=== PATIENT | male | born 1970 | race Hispanic/Latino ===

== ENCOUNTER 2018-11-05 17:49 | Emergency (ER) | payer OTHER ==
[2018-11-05 18:30] LABS: BASOPHILS % (AUTO) 0.6 % (0.0-5.0); EOSINOPHILS % (AUTO) 4.2 % (0.0-8.0); HEMATOCRIT 45.4 % (42-54); LYMPHOCYTES % (AUTO) 34.7 % (21.0-51.0); MEAN CORPUSCULAR HEMOGLOBIN 31.5 pg (27.0-33.0); MEAN CORPUSCULAR HGB CONC 33.8 g/dL (32.0-36.0); MEAN CORPUSCULAR VOLUME 93.2 fL (79-99); MONOCYTES % (AUTO) 9.3 % (3.0-13.0); NEUTROPHILS % (AUTO) 51.2 % (40.0-77.0); PLATELET COUNT (AUTO) 209 K/uL (130-400); RED BLOOD CELL COUNT(AUTO) 4.87 MIL/uL (4.50-6.20); RED CELL DISTRIBUTION WIDTH 13.9 % (11.0-15.5); WHITE BLOOD COUNT (AUTO) 9.9 K/uL (4.8-10.8)
[2018-11-05] MEDS ORDERED: LABETALOL HCL 5 MG/ML 20ML VIAL IV ONE (18:33)
[2018-11-05] MEDS ORDERED: ONDANSETRON HCL 4 MG/2 ML VIAL ONE (18:33)
[2018-11-05 18:44] LABS: CREATININE 0.9 mg/dL (0.5-1.5); POTASSIUM 3.7 mmol/L (3.5-5.1)
[2018-11-05 18:48] LABS: ALBUMIN 3.2 g/dL (3.5-5.0); BILIRUBIN,TOTAL 0.3 mg/dL (0.2-1.0); TOTAL PROTEIN, SERUM 7.8 g/dL (6.0-8.3)
[2018-11-05] MEDS ORDERED: FAMOTIDINE/PF 20 MG/2 ML VIAL IV ONE (19:16)
[2018-11-05] MEDS ORDERED: DICYCLOMINE HCL 20 MG TAB ONE (19:16)
== END 2018-11-05 20:16 | disposition home or self-care (01) ==
LOC: EDH 17:49
DX: K29.00 Acute gastritis without bleeding (principal); I10 Essential (primary) hypertension; E78.5 Hyperlipidemia, unspecified; E11.9 Type 2 diabetes mellitus without complications
CPT/HCPCS: 36415; 76705; 80053; 82948; 83690; 85025; 93005; 96365; 96375; 99284; J2405; J3490 ×2

== ENCOUNTER 2022-02-23 12:30 | Inpatient (IN) | payer OTHER ==
[~2022-02-23] VITALS: Ht 170.2 cm; Wt 127.5 kg
[~2022-02-23 12:30] MED LIST: ASPI-1443 PO; FURO20TA6 PO; METO50TA9 PO; TICA90TA PO
[2022-02-23] MEDS ORDERED: NITROGLYCERIN 0.4 MG SL TAB SL ONE (12:43)
[2022-02-23 13:01] LABS: BASOPHILS % (AUTO) 0.2 % (0.0-5.0); EOSINOPHILS % (AUTO) 7.2 % (0.0-8.0); HEMATOCRIT 45.4 % (42-54); LYMPHOCYTES % (AUTO) 34.9 % (21.0-51.0); MEAN CORPUSCULAR HEMOGLOBIN 29.9 pg (27.0-33.0); MEAN CORPUSCULAR VOLUME 90.4 fL (79-99); MONOCYTES % (AUTO) 10.3 % (3.0-13.0); NEUTROPHILS % (AUTO) 47.2 % (40.0-77.0); PLATELET COUNT (AUTO) 209 K/uL (130-400); RED BLOOD CELL COUNT(AUTO) 5.02 MIL/uL (4.50-6.20); RED CELL DISTRIBUTION WIDTH 13.4 % (11.0-15.5); WHITE BLOOD COUNT (AUTO) 9.2 K/uL (4.8-10.8)
[2022-02-23 13:16] LABS: B-TYPE NATRIURETIC PEPTIDE 119 pg/mL (0-100)
[2022-02-23 13:21] LABS: CREATININE 0.7 mg/dL (0.5-1.5)
[2022-02-23 13:26] LABS: ALBUMIN 3.2 g/dL (3.5-5.0); BILIRUBIN,TOTAL 0.5 mg/dL (0.2-1.0); TOTAL PROTEIN, SERUM 7.6 g/dL (6.0-8.3)
[2022-02-23] MEDS ORDERED: LACTULOSE 20 GM/30 ML UDCUP PO PRN (15:00)
[2022-02-23] MEDS ORDERED: ASPIRIN 81MG CHEW TAB PO ONE (15:00)
[2022-02-23] MEDS ORDERED: ACETAMINOPHEN 325 MG TAB PO PRN ×2 (15:00)
[2022-02-23] MEDS ORDERED: ONDANSETRON 4MG INJ IV PRN (15:00)
[2022-02-23 15:24] LABS: BASOPHILS % (AUTO) 0.2 % (0.0-5.0); EOSINOPHILS % (AUTO) 5.8 % (0.0-8.0); HEMATOCRIT 46.5 % (42-54); LYMPHOCYTES % (AUTO) 34.3 % (21.0-51.0); MEAN CORPUSCULAR HEMOGLOBIN 29.8 pg (27.0-33.0); MEAN CORPUSCULAR HGB CONC 32.5 g/dL (32.0-36.0); MEAN CORPUSCULAR VOLUME 91.9 fL (79-99); MONOCYTES % (AUTO) 8.9 % (3.0-13.0); NEUTROPHILS % (AUTO) 50.5 % (40.0-77.0); PLATELET COUNT (AUTO) 213 K/uL (130-400); RED BLOOD CELL COUNT(AUTO) 5.06 MIL/uL (4.50-6.20); RED CELL DISTRIBUTION WIDTH 13.4 % (11.0-15.5); WHITE BLOOD COUNT (AUTO) 9.5 K/uL (4.8-10.8)
[2022-02-23 15:41] LABS: INR 1.02 (0.85-1.15); PROTHROMBIN TIME 11.1 SEC (9.6-11.6)
[2022-02-23 15:42] LABS: PARTIAL THROMBOPLASTIN TIME 25.6 SEC (26.3-35.5)
[2022-02-23 15:53] LABS: THYROID STIMULATING HORMONE 1.74 uIU/mL (0.36-3.74)
[2022-02-23] MEDS: NITROGLYCERIN 1GM OINT 1 INCH/1GM TD SCH ×2 (15:57→22:19)
[2022-02-23] MEDS: HEPARIN 25,000 UNITS/250ML D5W 250 ML IV SCH (16:29)
[2022-02-23] MEDS ORDERED: FUROSEMIDE 40MG VIAL IV ONE (17:00)
[2022-02-23] MEDS: FAMOTIDINE 20MG VIAL IV SCH (21:00)
[2022-02-23 21:23] LABS: INR 1.02 (0.85-1.15); PROTHROMBIN TIME 11.1 SEC (9.6-11.6)
[2022-02-23 21:24] LABS: PARTIAL THROMBOPLASTIN TIME 65.2 SEC (26.3-35.5)
[2022-02-23 21:35] VITALS: BP 125/67
[2022-02-23] MEDS: ATORVASTATIN 40 MG TABLET PO SCH (22:18)
[2022-02-23] MEDS: METOPROLOL TARTRATE 25 MG TAB PO SCH (22:19)
[2022-02-23] MEDS: TICAGRELOR 90 MG TABLET PO SCH (22:19)
[2022-02-24] VITALS (14 sets, daily range): BP systolic 99–167; BP diastolic 62–93
[2022-02-24] MEDS: HEPARIN 25,000 UNITS/250ML D5W 250 ML IV SCH (04:04)
[2022-02-24 04:42] LABS: BASOPHILS % (AUTO) 0.3 % (0.0-5.0); EOSINOPHILS % (AUTO) 5.7 % (0.0-8.0); HEMATOCRIT 43.1 % (42-54); LYMPHOCYTES % (AUTO) 38.1 % (21.0-51.0); MEAN CORPUSCULAR HEMOGLOBIN 28.9 pg (27.0-33.0); MEAN CORPUSCULAR HGB CONC 31.1 g/dL (32.0-36.0); MEAN CORPUSCULAR VOLUME 92.9 fL (79-99); MONOCYTES % (AUTO) 7.9 % (3.0-13.0); NEUTROPHILS % (AUTO) 47.6 % (40.0-77.0); PLATELET COUNT (AUTO) 216 K/uL (130-400); RED BLOOD CELL COUNT(AUTO) 4.64 MIL/uL (4.50-6.20); RED CELL DISTRIBUTION WIDTH 13.5 % (11.0-15.5); WHITE BLOOD COUNT (AUTO) 14.1 K/uL (4.8-10.8)
[2022-02-24 04:51] LABS: INR 1.04 (0.85-1.15); PROTHROMBIN TIME 11.3 SEC (9.6-11.6)
[2022-02-24 05:12] LABS: PARTIAL THROMBOPLASTIN TIME 109.8 SEC (26.3-35.5)
[2022-02-24 05:22] LABS: POTASSIUM 4.1 mmol/L (3.5-5.1)
[2022-02-24] MEDS: NITROGLYCERIN 1GM OINT 1 INCH/1GM TD SCH ×2 (06:15→15:00)
[2022-02-24] MEDS: METOPROLOL TARTRATE 25 MG TAB PO SCH ×2 (08:38→20:54)
[2022-02-24] MEDS: FAMOTIDINE 20MG VIAL IV SCH ×2 (08:38→20:54)
[2022-02-24] MEDS: TICAGRELOR 90 MG TABLET PO SCH ×2 (08:38→20:54)
[2022-02-24] MEDS: ASPIRIN 81MG CHEW TAB PO SCH (08:38)
[2022-02-24] MEDS ORDERED: BIVALIRUDIN 250 MG/VIAL IV ONE (12:38)
[2022-02-24] MEDS ORDERED: IOHEXOL-350 50ML VIAL IV ONE (12:39)
[2022-02-24] MEDS ORDERED: IOHEXOL 350 MG/ML 100ML INFUS..BTL IV ONE (12:39)
[2022-02-24] MEDS ORDERED: LIDOCAINE HCL 400MG/20ML VIAL ONE (12:39)
[2022-02-24] MEDS ORDERED: HEPARIN 10,000 UNIT/10ML (1,000 UNIT/ML) VIAL ONE (12:39)
[2022-02-24] MEDS ORDERED: SODIUM BICARB 50MEQ 50ML VIAL 50 ML ONE (12:56)
[2022-02-24] MEDS ORDERED: NITROGLYCERIN 50MG VIAL ONE (12:57)
[2022-02-24] MEDS ORDERED: FENTANYL CITRATE PF 50 MCG/1 ML 2ML VIAL ONE (12:57)
[2022-02-24] MEDS ORDERED: NICARDIPINE 25MG INJ IV ONE (12:57)
[2022-02-24] MEDS ORDERED: MIDAZOLAM HCL 1 MG/ML 2ML VIAL ONE (12:57)
[2022-02-24] MEDS ORDERED: 0.9% NACL 500ML IV.SOLN 500 ML IV SCH (14:30)
[2022-02-24] MEDS: ATORVASTATIN 40 MG TABLET PO SCH (20:54)
[2022-02-25 00:14] VITALS: BP 130/75
[2022-02-25 04:06] VITALS: BP 137/74
[2022-02-25 04:17] LABS: HEMATOCRIT 40.1 % (42-54); MEAN CORPUSCULAR HGB CONC 31.9 g/dL (32.0-36.0); MEAN CORPUSCULAR VOLUME 90.7 fL (79-99); RED BLOOD CELL COUNT(AUTO) 4.42 MIL/uL (4.50-6.20); RED CELL DISTRIBUTION WIDTH 13.5 % (11.0-15.5); WHITE BLOOD COUNT (AUTO) 10.4 K/uL (4.8-10.8)
[2022-02-25 04:32] LABS: MAGNESIUM 1.8 mg/dL (1.80-2.40); POTASSIUM 4.2 mmol/L (3.5-5.1)
[2022-02-25] MEDS: NITROGLYCERIN 1GM OINT 1 INCH/1GM TD SCH ×2 (06:02→06:03)
[2022-02-25 08:24] VITALS: BP 151/83
[2022-02-25] MEDS: METOPROLOL TARTRATE 25 MG TAB PO SCH (09:08)
[2022-02-25] MEDS: TICAGRELOR 90 MG TABLET PO SCH (09:08)
[2022-02-25] MEDS: ASPIRIN 81MG CHEW TAB PO SCH (09:08)
[2022-02-25] MEDS: FAMOTIDINE 20MG VIAL IV SCH (09:08)
[2022-02-25 10:46] LABS: AMPHET/METH SCREEN,URINE NEGATIVE (NEGATIVE); BARBITURATE SCREEN, URINE NEGATIVE (NEGATIVE); BENZODIAZEPINES SCREEN,URINE POSITIVE (NEGATIVE); CANNABINOID SCREEN,URINE NEGATIVE (NEGATIVE); COCAINE SCREEN,URINE NEGATIVE (NEGATIVE); OPIATE SCREEN,URINE NEGATIVE (NEGATIVE); PHENCYCLIDINE SCREEN,URINE NEGATIVE (NEGATIVE)
[2022-02-25] MEDS ORDERED: SACU1TAB PO (11:39)
[2022-02-25] MEDS ORDERED: ATOR40TA69 PO (11:39)
[2022-02-25 12:00] VITALS: BP 103/71
== END 2022-02-25 14:20 | disposition home or self-care (01) | DRG 246 ==
LOC: EDH 12:30 → EDHIP 14:42 → 2DH 21:50
PROVIDERS: ADMIT Internal Medicine; ATTEND Internal Medicine
PROC: 4A023N7 Measurement of Cardiac Sampling and Pressure, Left Heart, Percutaneous Approach (ICD-10-PCS; principal; 2022-02-24)
PROC: 027034Z Dilation of Coronary Artery, One Artery with Drug-eluting Intraluminal Device, Percutaneous Approach (ICD-10-PCS; 2022-02-24)
PROC: B2111ZZ Fluoroscopy of Multiple Coronary Arteries using Low Osmolar Contrast (ICD-10-PCS; 2022-02-24)
PROC: 4A033BC Measurement of Arterial Pressure, Coronary, Percutaneous Approach (ICD-10-PCS; 2022-02-24)
DX: I21.4 Non-ST elevation (NSTEMI) myocardial infarction (principal); I50.23 Acute on chronic systolic (congestive) heart failure; Z68.41 Body mass index [BMI] 40.0-44.9, adult; I11.0 Hypertensive heart disease with heart failure; Z82.49 Family history of ischemic heart disease and other diseases of the circulatory system; I25.2 Old myocardial infarction; E66.9 Obesity, unspecified; E11.9 Type 2 diabetes mellitus without complications; Z20.822 Contact with and (suspected) exposure to COVID-19; E78.00 Pure hypercholesterolemia, unspecified; I25.10 Atherosclerotic heart disease of native coronary artery without angina pectoris
CPT/HCPCS: 36415; 71045; 80048; 80053; 80061; 80305; 82550; 82948; 83735; 83874; 83880; 84443; 84484; 85025; 85027; 85347; 85378; 85610; 85730; 87635; 93005; 93454; 93571; 99156; 99157; 99291; C1887; C9600; C9803; G0378; J0583; J1644; J1940; J2250; J2405; J3010; J3490; Q9967

== ENCOUNTER → 2022-05-28 | Outpatient (CLI) | payer OTHER ==
[~2022-05-28] MED LIST changes: +AEC81 PO; +ATOR40TA69 PO; +BUDE10.7 IH; +FURO20TA4 PO; +ISOS30TA92 PO; +METF-444 PO; +METO25TA3 PO; +NITR0.3T11 SL; +PRED20TA3 PO; +SACU1TAB PO
== END | disposition home or self-care (01) ==
LOC: SHCH 09:51
PROVIDERS: ATTEND Internal Medicine Cardiovascular Disease
DX: I11.0 Hypertensive heart disease with heart failure (principal); I50.22 Chronic systolic (congestive) heart failure; I25.5 Ischemic cardiomyopathy; I25.10 Atherosclerotic heart disease of native coronary artery without angina pectoris; I36.1 Nonrheumatic tricuspid (valve) insufficiency; I25.2 Old myocardial infarction; G47.33 Obstructive sleep apnea (adult) (pediatric); E78.5 Hyperlipidemia, unspecified; E66.9 Obesity, unspecified
CPT/HCPCS: 93306

== ENCOUNTER 2022-06-11 07:00 | Inpatient (IN) | payer OTHER ==
[2022-06-11] VITALS (15 sets, daily range): BP systolic 102–145; BP diastolic 58–82
[~2022-06-11] VITALS: Ht 170.2 cm; Wt 128.6 kg
[~2022-06-11 07:00] MED LIST changes: -AEC81 PO; -BUDE10.7 IH; -FURO20TA4 PO; -ISOS30TA92 PO; -METF-444 PO; -METO25TA3 PO; -NITR0.3T11 SL; -PRED20TA3 PO
[2022-06-11] MEDS ORDERED: NITROGLYCERIN 1GM OINT 1 INCH/1GM TD ONE ×2 (07:23→07:30)
[2022-06-11] MEDS ORDERED: FENTANYL CITRATE PF 50 MCG/1 ML 2ML VIAL ONE (07:36)
[2022-06-11 07:46] LABS: APPEARANCE,URINE CLEAR (CLEAR); BILIRUBIN,URINE NEGATIVE (NEGATIVE); COLOR,URINE YELLOW (YELLOW); GLUCOSE, URINE (UA) >=1000 mg/dL (NEGATIVE); KETONES,URINE NEGATIVE (NEGATIVE); LEUKOCYTE ESTERASE ,URINE NEGATIVE (NEGATIVE); NITRATE,URINE NEGATIVE (NEGATIVE); OCCULT BLOOD,URINE NEGATIVE (NEGATIVE); PH,URINE 5.5 (5.0-8.0); PROTEIN,URINE NEGATIVE (NEGATIVE); UROBILINOGEN,URINE 0.2 mg/dL (0.2-1.0)
[2022-06-11] MEDS ORDERED: NITR0.3T11 SL (07:57)
[2022-06-11] MEDS ORDERED: BUDE10.7 IH (07:57)
[2022-06-11] MEDS ORDERED: FENTANYL CITRATE PF 50 MCG/1 ML 2ML VIAL IVP ONE (08:00)
[2022-06-11] MEDS ORDERED: PRED20TA3 PO (08:01)
[2022-06-11] MEDS ORDERED: FURO20TA4 PO (08:01)
[2022-06-11 08:02] LABS: ALBUMIN 3.4 g/dL (3.5-5.0); CREATININE 1.4 mg/dL (0.5-1.5); POTASSIUM 4.2 mmol/L (3.5-5.1); TOTAL PROTEIN, SERUM 7.8 g/dL (6.0-8.3)
[2022-06-11 08:04] LABS: BACTERIA,URINE Few /HPF (None Seen); RBC,URINE 0-1 /HPF (0-1); SQUAMOUS EPITHELIAL CELL,UR 0-2 /HPF (0-2); WBC,URINE 0-1 /HPF (0-1)
[2022-06-11 08:15] LABS: B-TYPE NATRIURETIC PEPTIDE 172 pg/mL (0-100)
[2022-06-11 08:18] LABS: BASOPHILS % (AUTO) 0.1 % (0.0-5.0); HEMATOCRIT 46.1 % (42-54); LYMPHOCYTES % (AUTO) 17.4 % (21.0-51.0); MEAN CORPUSCULAR HEMOGLOBIN 30.4 pg (27.0-33.0); MEAN CORPUSCULAR HGB CONC 33.8 g/dL (32.0-36.0); MEAN CORPUSCULAR VOLUME 89.7 fL (79-99); MONOCYTES % (AUTO) 7.8 % (3.0-13.0); PLATELET COUNT (AUTO) 278 K/uL (130-400); RED BLOOD CELL COUNT(AUTO) 5.14 MIL/uL (4.50-6.20); RED CELL DISTRIBUTION WIDTH 13.9 % (11.0-15.5)
[2022-06-11] MEDS ORDERED: NYSTATIN 100000 UNIT/ML 5ML UDCUP PO ONE (08:30)
[2022-06-11] MEDS ORDERED: HEPARIN 25,000 UNITS/250ML D5W 250 ML IV SCH (08:30)
[2022-06-11 08:45] LABS: INR 0.95 (0.85-1.15); PROTHROMBIN TIME 10.4 SEC (9.6-11.6)
[2022-06-11] MEDS ORDERED: DIPHENHYDRAMINE HCL 25 MG CAPSULE PO PRN (09:00)
[2022-06-11] MEDS ORDERED: KCL 20 MEQ ERTAB PO PRN (09:00)
[2022-06-11] MEDS ORDERED: LACTULOSE 20 GM/30 ML UDCUP PO PRN (09:00)
[2022-06-11] MEDS ORDERED: GUAIFENESIN-DM 200/20 MG 10 ML PO PRN (09:00)
[2022-06-11] MEDS ORDERED: ACETAMINOPHEN 325 MG TAB PO PRN ×2 (09:00)
[2022-06-11] MEDS ORDERED: NITROGLYCERIN 0.4 MG SL TAB SL PRN (09:00)
[2022-06-11] MEDS ORDERED: MAG/ALUM/SIMETH 30 ML UDCUP PO PRN (09:00)
[2022-06-11] MEDS ORDERED: POTASSIUM CHLORIDE 20MEQ/100ML 100 ML IV PRN (09:00)
[2022-06-11] MEDS ORDERED: MAGNESIUM 2GM PREMIX 50ML 50 ML IV PRN (09:00)
[2022-06-11] MEDS ORDERED: DEXTROSE 50%-WATER 50 ML DISP.SYRIN IV PRN ×2 (09:00→12:00)
[2022-06-11] MEDS ORDERED: ONDANSETRON 4MG INJ IV PRN (09:00)
[2022-06-11] MEDS ORDERED: LIDOCAINE HCL-MPF 1% 2ML VIAL IV PRN (09:00)
[2022-06-11] MEDS: FAMOTIDINE 20MG TAB PO SCH ×3 (09:00→22:02)
[2022-06-11] MEDS ORDERED: POTASSIUM CHLORIDE 10% ELIXIR 20 MEQ/15 ML UDCUP PO PRN (09:00)
[2022-06-11] MEDS ORDERED: DiphenhydrAMINE HCL 50 MG/ML VIAL IV PRN (09:00)
[2022-06-11] MEDS ORDERED: CLOPIDOGREL 300MG TAB PO SCH (09:00)
[2022-06-11] MEDS ORDERED: GLUCAGON 1MG KIT 1 MG ML IM PRN ×2 (09:00→12:00)
[2022-06-11] MEDS ORDERED: HEPARIN 5,000 UNIT VIAL ONE (09:01)
[2022-06-11] MEDS: FAMOTIDINE 20MG VIAL IV SCH ×2 (09:35→22:02)
[2022-06-11] MEDS ORDERED: HEPARIN 10,000 UNIT/10ML (1,000 UNIT/ML) VIAL ONE (10:24)
[2022-06-11] MEDS ORDERED: IOHEXOL 350 MG/ML 100ML INFUS..BTL IV ONE (10:24)
[2022-06-11] MEDS ORDERED: NICARDIPINE 25MG INJ IV ONE (10:24)
[2022-06-11] MEDS ORDERED: NITROGLYCERIN 50MG VIAL ONE (10:24)
[2022-06-11] MEDS ORDERED: MIDAZOLAM HCL 1 MG/ML 2ML VIAL ONE (10:25)
[2022-06-11] MEDS ORDERED: TICAGRELOR 90 MG TABLET ONE (11:27)
[2022-06-11] MEDS ORDERED: 0.9%NACL 1000ML 1,000 ML IV SCH (12:00)
[2022-06-11] MEDS: INSULIN HUMULIN R 100 UNIT/ML 3ML SQ SCH ×3 (13:11→22:04)
[2022-06-11] MEDS ORDERED: SACUBITRIL/VALSARTAN 1 EACH TABLET PO SCH (21:00)
[2022-06-11] MEDS: ATORVASTATIN 40 MG TABLET PO SCH (22:02)
[2022-06-11] MEDS: PREDNISONE 20 MG TABLET PO SCH (22:02)
[2022-06-11] MEDS: TICAGRELOR 90 MG TABLET PO SCH (22:02)
[2022-06-11] MEDS: FUROSEMIDE 20 MG TABLET PO SCH (22:05)
[2022-06-12 03:42] VITALS: BP 101/58
[2022-06-12 03:46] LABS: BASOPHILS % (AUTO) 0.1 % (0.0-5.0); EOSINOPHILS % (AUTO) 0.9 % (0.0-8.0); HEMATOCRIT 45.2 % (42-54); LYMPHOCYTES % (AUTO) 19.6 % (21.0-51.0); MEAN CORPUSCULAR HEMOGLOBIN 30.1 pg (27.0-33.0); MEAN CORPUSCULAR HGB CONC 32.5 g/dL (32.0-36.0); MEAN CORPUSCULAR VOLUME 92.6 fL (79-99); MONOCYTES % (AUTO) 9.2 % (3.0-13.0); NEUTROPHILS % (AUTO) 69.6 % (40.0-77.0); PLATELET COUNT (AUTO) 248 K/uL (130-400); RED BLOOD CELL COUNT(AUTO) 4.88 MIL/uL (4.50-6.20); RED CELL DISTRIBUTION WIDTH 14.1 % (11.0-15.5); WHITE BLOOD COUNT (AUTO) 19.2 K/uL (4.8-10.8)
[2022-06-12 03:56] LABS: CREATININE 1.3 mg/dL (0.5-1.5); POTASSIUM 4.6 mmol/L (3.5-5.1)
[2022-06-12] MEDS: INSULIN HUMULIN R 100 UNIT/ML 3ML SQ SCH ×3 (07:06→20:49)
[2022-06-12] MEDS: FUROSEMIDE 20 MG TABLET PO SCH ×2 (07:51→20:56)
[2022-06-12] MEDS: METOPROLOL SUCCINATE 25 MG TAB.SR.24H PO SCH (07:52)
[2022-06-12] MEDS: ASPIRIN 81 MG EC TAB PO SCH (07:52)
[2022-06-12] MEDS: FAMOTIDINE 20MG VIAL IV SCH ×2 (07:52→20:56)
[2022-06-12] MEDS: FAMOTIDINE 20MG TAB PO SCH ×2 (07:52→20:56)
[2022-06-12] MEDS: TICAGRELOR 90 MG TABLET PO SCH ×2 (07:52→20:55)
[2022-06-12] MEDS: PREDNISONE 20 MG TABLET PO SCH ×2 (07:52→20:55)
[2022-06-12 08:00] VITALS: BP 107/71
[2022-06-12] MEDS ORDERED: CLOPIDOGREL 75MG TAB PO SCH (09:00)
[2022-06-12] MEDS: SACUBITRIL/VALSARTAN 1 EACH TABLET PO SCH ×2 (09:27→20:56)
[2022-06-12 11:47] VITALS: BP 113/55
[2022-06-12 15:50] VITALS: BP 108/58
[2022-06-12 20:00] VITALS: BP 117/59
[2022-06-12] MEDS: ATORVASTATIN 40 MG TABLET PO SCH (20:55)
[2022-06-12] MEDS ORDERED: INSULIN GLARGINE 100 UNITS/ML 10 ML VIAL SQ SCH (21:00)
[2022-06-12 23:43] VITALS: BP 116/68
[2022-06-13 04:29] LABS: BASOPHILS % (AUTO) 0.1 % (0.0-5.0); EOSINOPHILS % (AUTO) 0.1 % (0.0-8.0); HEMATOCRIT 44.3 % (42-54); LYMPHOCYTES % (AUTO) 16.1 % (21.0-51.0); MEAN CORPUSCULAR HEMOGLOBIN 30.5 pg (27.0-33.0); MEAN CORPUSCULAR VOLUME 92.7 fL (79-99); MONOCYTES % (AUTO) 7.4 % (3.0-13.0); NEUTROPHILS % (AUTO) 75.7 % (40.0-77.0); PLATELET COUNT (AUTO) 252 K/uL (130-400); RED BLOOD CELL COUNT(AUTO) 4.78 MIL/uL (4.50-6.20); RED CELL DISTRIBUTION WIDTH 14.2 % (11.0-15.5); WHITE BLOOD COUNT (AUTO) 17.8 K/uL (4.8-10.8)
[2022-06-13 04:30] VITALS: BP 115/66
[2022-06-13 04:41] LABS: CREATININE 1.2 mg/dL (0.5-1.5); POTASSIUM 4.5 mmol/L (3.5-5.1)
[2022-06-13] MEDS: INSULIN HUMULIN R 100 UNIT/ML 3ML SQ SCH ×2 (06:35→11:30)
[2022-06-13] MEDS: METOPROLOL SUCCINATE 25 MG TAB.SR.24H PO SCH (09:00)
[2022-06-13] MEDS: FAMOTIDINE 20MG VIAL IV SCH (09:00)
[2022-06-13] MEDS: PREDNISONE 20 MG TABLET PO SCH (09:07)
[2022-06-13] MEDS: SACUBITRIL/VALSARTAN 1 EACH TABLET PO SCH (09:08)
[2022-06-13] MEDS: TICAGRELOR 90 MG TABLET PO SCH (09:08)
[2022-06-13] MEDS: ASPIRIN 81 MG EC TAB PO SCH (09:08)
[2022-06-13] MEDS: FAMOTIDINE 20MG TAB PO SCH (09:08)
[2022-06-13] MEDS: FUROSEMIDE 20 MG TABLET PO SCH (09:09)
[2022-06-13 09:19] VITALS: BP 100/53
[2022-06-13] MEDS ORDERED: ISOS30TA92 PO (10:15)
[2022-06-13] MEDS ORDERED: FURO20TA6 PO (10:44)
[2022-06-13] MEDS ORDERED: METO25TA3 PO (10:44)
[2022-06-13] MEDS ORDERED: AEC81 PO (10:44)
[2022-06-13] MEDS ORDERED: METF-444 PO (10:44)
[2022-06-13] MEDS ORDERED: ATOR40TA69 PO (10:44)
[2022-06-13 12:09] VITALS: BP 114/62
== END 2022-06-13 13:11 | disposition home or self-care (01) | DRG 280 ==
LOC: EDH 07:00 → EDHIP 08:37 → 2BH 11:49 → 2AH 14:47
PROVIDERS: ADMIT Internal Medicine; ATTEND Internal Medicine
PROC: 4A023N7 Measurement of Cardiac Sampling and Pressure, Left Heart, Percutaneous Approach (ICD-10-PCS; principal; 2022-06-11)
PROC: B2111ZZ Fluoroscopy of Multiple Coronary Arteries using Low Osmolar Contrast (ICD-10-PCS; 2022-06-11)
DX: I25.10 Atherosclerotic heart disease of native coronary artery without angina pectoris (principal); I21.A1 Myocardial infarction type 2; U07.1 COVID-19; Z68.41 Body mass index [BMI] 40.0-44.9, adult; D72.829 Elevated white blood cell count, unspecified; E11.65 Type 2 diabetes mellitus with hyperglycemia; E66.01 Morbid (severe) obesity due to excess calories; E78.00 Pure hypercholesterolemia, unspecified; G47.33 Obstructive sleep apnea (adult) (pediatric); I11.0 Hypertensive heart disease with heart failure; I25.5 Ischemic cardiomyopathy; I50.9 Heart failure, unspecified; I25.2 Old myocardial infarction; Z79.02 Long term (current) use of antithrombotics/antiplatelets; Z79.84 Long term (current) use of oral hypoglycemic drugs; Z87.891 Personal history of nicotine dependence; Z95.5 Presence of coronary angioplasty implant and graft
CPT/HCPCS: 36415; 71045; 80048; 80053; 81001; 82948; 83690; 83735; 83880; 84484; 85025; 85378; 85610; 85730; 87635; 93005; 93458; 99156; 99157; C1769; G0378; J1644; J1815; J2250; J3010; J3490; Q9967

== ENCOUNTER 2022-09-17 20:38 | Emergency (ER) | payer OTHER ==
[~2022-09-17] VITALS: Ht 180.3 cm; Wt 127.0 kg
[~2022-09-17 20:38] MED LIST changes: +AEC81 PO; +BUDE10.7 IH; +FURO20TA4 PO; +ISOS30TA92 PO; +METF-444 PO; +METO25TA3 PO; +NITR0.3T11 SL; +PRED20TA3 PO
[2022-09-17 21:16] LABS: BASOPHILS % (AUTO) 0.3 % (0.0-5.0); EOSINOPHILS % (AUTO) 3.7 % (0.0-8.0); LYMPHOCYTES % (AUTO) 42.7 % (21.0-51.0); MEAN CORPUSCULAR HEMOGLOBIN 29.9 pg (27.0-33.0); MEAN CORPUSCULAR HGB CONC 32.6 g/dL (32.0-36.0); MEAN CORPUSCULAR VOLUME 91.8 fL (79-99); MONOCYTES % (AUTO) 10.4 % (3.0-13.0); NEUTROPHILS % (AUTO) 42.6 % (40.0-77.0); PLATELET COUNT (AUTO) 237 K/uL (130-400); RED BLOOD CELL COUNT(AUTO) 4.25 MIL/uL (4.50-6.20); RED CELL DISTRIBUTION WIDTH 13.6 % (11.0-15.5); WHITE BLOOD COUNT (AUTO) 10.8 K/uL (4.8-10.8)
[2022-09-17 21:34] LABS: CREATININE 1.1 mg/dL (0.5-1.5); POTASSIUM 3.8 mmol/L (3.5-5.1)
[2022-09-17 21:48] LABS: ALBUMIN 3.2 g/dL (3.5-5.0); AMYLASE 104 U/L (25-115); CREATINE KINASE, TOTAL 93 U/L (21-232); LIPASE 141 U/L (114-286); TOTAL PROTEIN, SERUM 7.3 g/dL (6.0-8.3)
[2022-09-17] MEDS ORDERED: IBUP-1493 PO (23:33)
[2022-09-17] MEDS ORDERED: GABA300C PO (23:33)
[2022-09-17] MEDS ORDERED: LIDOP TD (23:33)
[2022-09-17] MEDS ORDERED: MORPHINE 2 MG SYG ONE (23:44)
[2022-09-17 23:54] VITALS: BP 139/76
[2022-09-18] MEDS ORDERED: MORPHINE 2 MG SYG IVP ONE
== END 2022-09-18 | disposition home or self-care (01) ==
LOC: EDH 20:38
DX: M48.061 Spinal stenosis, lumbar region without neurogenic claudication (principal); M54.12 Radiculopathy, cervical region; M94.0 Chondrocostal junction syndrome [Tietze]; I50.9 Heart failure, unspecified; I25.10 Atherosclerotic heart disease of native coronary artery without angina pectoris; E78.00 Pure hypercholesterolemia, unspecified; I25.2 Old myocardial infarction; Z79.52 Long term (current) use of systemic steroids; Z79.82 Long term (current) use of aspirin; Z79.84 Long term (current) use of oral hypoglycemic drugs; Z79.899 Other long term (current) drug therapy; Z95.5 Presence of coronary angioplasty implant and graft; Z95.810 Presence of automatic (implantable) cardiac defibrillator
CPT/HCPCS: 36415; 71045; 80053; 82150; 82550; 83690; 83880; 84484; 85025; 85378; 93005; 96374

== ENCOUNTER → 2022-09-29 | Outpatient (CLI) | payer OTHER ==
[~2022-09-29] MED LIST changes: +GABA300C PO; +IBUP-1493 PO; +LIDOP TD
[2022-09-29 16:33] LABS: ALBUMIN 3.3 g/dL (3.5-5.0); POTASSIUM 3.9 mmol/L (3.5-5.1); TOTAL PROTEIN, SERUM 7.6 g/dL (6.0-8.3)
== END | disposition home or self-care (01) ==
LOC: LAB 13:31
PROVIDERS: ATTEND Internal Medicine Cardiovascular Disease
DX: I50.22 Chronic systolic (congestive) heart failure (principal); R06.09 Other forms of dyspnea
CPT/HCPCS: 36415; 80053

== ENCOUNTER 2023-03-05 18:07 | Inpatient (IN) | payer OTHER ==
[~2023-03-05] VITALS: Ht 170.2 cm; Wt 128.4 kg
[2023-03-05 18:29] LABS: BASOPHILS % (AUTO) 0.3 % (0.0-5.0); EOSINOPHILS % (AUTO) 6.7 % (0.0-8.0); HEMATOCRIT 41.4 % (42-54); LYMPHOCYTES % (AUTO) 37.9 % (21.0-51.0); MEAN CORPUSCULAR HEMOGLOBIN 29.6 pg (27.0-33.0); MEAN CORPUSCULAR HGB CONC 32.9 g/dL (32.0-36.0); MEAN CORPUSCULAR VOLUME 90.2 fL (79-99); MONOCYTES % (AUTO) 9.1 % (3.0-13.0); NEUTROPHILS % (AUTO) 45.7 % (40.0-77.0); PLATELET COUNT (AUTO) 230 K/uL (130-400); RED BLOOD CELL COUNT(AUTO) 4.59 MIL/uL (4.50-6.20); RED CELL DISTRIBUTION WIDTH 14.1 % (11.0-15.5); WHITE BLOOD COUNT (AUTO) 11.6 K/uL (4.8-10.8)
[2023-03-05 18:39] LABS: POTASSIUM 3.8 mmol/L (3.5-5.1)
[2023-03-05] MEDS ORDERED: MORPHINE 2 MG SYG ONE (18:41)
[2023-03-05 18:48] LABS: ALBUMIN 3.2 g/dL (3.5-5.0); MAGNESIUM 2.3 mg/dL (1.80-2.40); TOTAL PROTEIN, SERUM 7.6 g/dL (6.0-8.3)
[2023-03-05] MEDS ORDERED: MORPHINE 2 MG SYG IM ONE (19:00)
[2023-03-05] MEDS ORDERED: ASPIRIN 325MG TAB PO ONE (20:30)
[2023-03-05] MEDS ORDERED: NITROGLYCERIN 1GM OINT 1 INCH/1GM TD ONE (20:30)
[2023-03-05] MEDS: NITROGLYCERIN 1GM OINT 1 INCH/1GM TD SCH (21:30)
[2023-03-05] MEDS ORDERED: POTASSIUM CHLORIDE 10% ELIXIR 20 MEQ/15 ML UDCUP PO PRN (21:30)
[2023-03-05] MEDS ORDERED: MORPHINE 2 MG SYG IV PRN (21:30)
[2023-03-05] MEDS ORDERED: POTASSIUM CHLORIDE 20MEQ/100ML 100 ML IV PRN (21:30)
[2023-03-05] MEDS ORDERED: MORPHINE 4 MG SYG IV PRN (21:30)
[2023-03-05] MEDS ORDERED: MAGNESIUM 2GM PREMIX 50ML 50 ML IV PRN (21:30)
[2023-03-05] MEDS ORDERED: ACETAMINOPHEN 325 MG TAB PO PRN ×2 (21:30)
[2023-03-05] MEDS ORDERED: HEPARIN PF LOCK 500 UNIT/5ML IV ONE (23:47)
[2023-03-06] MEDS ORDERED: CLOPIDOGREL 300MG TAB PO ONE
[2023-03-06 00:16] LABS: INR 1.08 (0.85-1.15); PROTHROMBIN TIME 11.7 SEC (9.6-11.6)
[2023-03-06 00:17] LABS: PARTIAL THROMBOPLASTIN TIME 29.7 SEC (26.3-35.5)
[2023-03-06] MEDS: HEPARIN 25,000 UNITS/250ML D5W 250 ML IV SCH (00:30)
[2023-03-06 01:16] LABS: APPEARANCE,URINE CLEAR (CLEAR); BILIRUBIN,URINE NEGATIVE (NEGATIVE); COLOR,URINE LIGHT-YELLOW (YELLOW); GLUCOSE, URINE (UA) NEGATIVE (NEGATIVE); KETONES,URINE NEGATIVE (NEGATIVE); LEUKOCYTE ESTERASE ,URINE NEGATIVE Leu/uL (NEGATIVE); NITRATE,URINE NEGATIVE (NEGATIVE); OCCULT BLOOD,URINE NEGATIVE (NEGATIVE); PH,URINE 5.5 (5.0-8.0); PROTEIN,URINE NEGATIVE (NEGATIVE); UROBILINOGEN,URINE 0.2 mg/dL (0.2-1.0)
[2023-03-06 01:23] LABS: AMPHET/METH SCREEN,URINE NEGATIVE (NEGATIVE); BARBITURATE SCREEN, URINE NEGATIVE (NEGATIVE); BENZODIAZEPINES SCREEN,URINE NEGATIVE (NEGATIVE); CANNABINOID SCREEN,URINE NEGATIVE (NEGATIVE); COCAINE SCREEN,URINE NEGATIVE (NEGATIVE); OPIATE SCREEN,URINE NEGATIVE (NEGATIVE); PHENCYCLIDINE SCREEN,URINE NEGATIVE (NEGATIVE)
[2023-03-06 04:45] LABS: BASOPHILS % (AUTO) 0.3 % (0.0-5.0); EOSINOPHILS % (AUTO) 6.3 % (0.0-8.0); HEMATOCRIT 41.5 % (42-54); LYMPHOCYTES % (AUTO) 41.6 % (21.0-51.0); MEAN CORPUSCULAR HEMOGLOBIN 29.8 pg (27.0-33.0); MEAN CORPUSCULAR HGB CONC 32.3 g/dL (32.0-36.0); MEAN CORPUSCULAR VOLUME 92.4 fL (79-99); NEUTROPHILS % (AUTO) 44.5 % (40.0-77.0); PLATELET COUNT (AUTO) 210 K/uL (130-400); RED BLOOD CELL COUNT(AUTO) 4.49 MIL/uL (4.50-6.20); RED CELL DISTRIBUTION WIDTH 14.2 % (11.0-15.5); WHITE BLOOD COUNT (AUTO) 12.3 K/uL (4.8-10.8)
[2023-03-06 05:20] LABS: HEMOGLOBIN A1C 7.6 % (4.0-6.0)
[2023-03-06] MEDS: NITROGLYCERIN 1GM OINT 1 INCH/1GM TD SCH (06:14)
[2023-03-06] MEDS ORDERED: CLOPIDOGREL 75MG TAB ONE (06:57)
[2023-03-06 07:10] LABS: INR 1.11 (0.85-1.15)
[2023-03-06 07:17] LABS: MAGNESIUM 2.1 mg/dL (1.80-2.40); PHOSPHORUS 3.4 mg/dL (2.5-4.9); POTASSIUM 3.8 mmol/L (3.5-5.1)
[2023-03-06] MEDS: INSULIN HUMULIN R 100 UNIT/ML 3ML SQ SCH ×4 (07:30→20:39)
[2023-03-06 07:47] LABS: PARTIAL THROMBOPLASTIN TIME 129.7 SEC (26.3-35.5)
[2023-03-06] MEDS ORDERED: CLOPIDOGREL 75MG TAB PO SCH (09:00)
[2023-03-06] MEDS ORDERED: NITROGLYCERIN 0.4 MG SL TAB SL PRN (09:00)
[2023-03-06] MEDS: FAMOTIDINE 20MG VIAL IV SCH (09:15)
[2023-03-06] MEDS: SACUBITRIL/VALSARTAN 1 EACH TABLET PO SCH ×2 (09:15→20:07)
[2023-03-06] MEDS: FUROSEMIDE 20 MG TABLET PO SCH ×2 (09:15→20:07)
[2023-03-06] MEDS: ASPIRIN 81MG CHEW TAB PO SCH (09:15)
[2023-03-06] MEDS: GABAPENTIN 300 MG CAPSULE PO SCH ×3 (09:16→20:07)
[2023-03-06] MEDS: METOPROLOL SUCCINATE 25 MG TAB.SR.24H PO SCH (10:12)
[2023-03-06 13:38] LABS: INR 1.2 (0.85-1.15); PROTHROMBIN TIME 12.9 SEC (9.6-11.6)
[2023-03-06 17:21] VITALS: BP 124/66
[2023-03-06 19:02] LABS: PROTHROMBIN TIME 10.9 SEC (9.6-11.6)
[2023-03-06 20:00] VITALS: BP 110/58
[2023-03-06] MEDS: ATORVASTATIN 40 MG TABLET PO SCH (20:07)
[2023-03-07] VITALS (7 sets, daily range): BP systolic 102–128; BP diastolic 57–65
[2023-03-07 01:15] LABS: HEMATOCRIT 40.2 % (42-54); MEAN CORPUSCULAR HEMOGLOBIN 29.7 pg (27.0-33.0); MEAN CORPUSCULAR HGB CONC 32.3 g/dL (32.0-36.0); MEAN CORPUSCULAR VOLUME 91.8 fL (79-99); RED BLOOD CELL COUNT(AUTO) 4.38 MIL/uL (4.50-6.20); RED CELL DISTRIBUTION WIDTH 14.2 % (11.0-15.5); WHITE BLOOD COUNT (AUTO) 11.3 K/uL (4.8-10.8)
[2023-03-07 01:30] LABS: INR 1.02 (0.85-1.15); PROTHROMBIN TIME 11.1 SEC (9.6-11.6)
[2023-03-07 01:33] LABS: ALBUMIN 2.9 g/dL (3.5-5.0); CREATININE 1.1 mg/dL (0.5-1.5); MAGNESIUM 2.2 mg/dL (1.80-2.40); POTASSIUM 4.1 mmol/L (3.5-5.1); TOTAL PROTEIN, SERUM 6.9 g/dL (6.0-8.3)
[2023-03-07] MEDS: INSULIN HUMULIN R 100 UNIT/ML 3ML SQ SCH ×4 (05:46→21:03)
[2023-03-07 07:50] LABS: INR 1.01 (0.85-1.15)
[2023-03-07 07:51] LABS: PARTIAL THROMBOPLASTIN TIME 60.4 SEC (26.3-35.5)
[2023-03-07] MEDS: METOPROLOL SUCCINATE 25 MG TAB.SR.24H PO SCH (09:04)
[2023-03-07] MEDS: FUROSEMIDE 20 MG TABLET PO SCH ×2 (09:05→20:45)
[2023-03-07] MEDS: SACUBITRIL/VALSARTAN 1 EACH TABLET PO SCH ×2 (09:05→20:44)
[2023-03-07] MEDS: GABAPENTIN 300 MG CAPSULE PO SCH ×3 (09:05→20:45)
[2023-03-07] MEDS: ASPIRIN 81MG CHEW TAB PO SCH (09:06)
[2023-03-07] MEDS: FAMOTIDINE 20MG VIAL IV SCH (09:06)
[2023-03-07] MEDS: HEPARIN 25,000 UNITS/250ML D5W 250 ML IV SCH (09:29)
[2023-03-07] MEDS ORDERED: ISOSORBIDE MONO 30MG SR TAB PO SCH (09:30)
[2023-03-07] MEDS ORDERED: TICAGRELOR 90 MG TABLET PO SCH (09:30)
[2023-03-07] MEDS ORDERED: HEPARIN 5,000 UNIT VIAL ONE (14:59)
[2023-03-07] MEDS: ATORVASTATIN 40 MG TABLET PO SCH (20:45)
[2023-03-07] MEDS: TICAGRELOR 90 MG TABLET PO SCH (20:45)
[2023-03-07] MEDS: ONDANSETRON 4MG INJ IV PRN (23:20)
[2023-03-08] VITALS (7 sets, daily range): BP systolic 98–116; BP diastolic 52–70
[2023-03-08 02:18] LABS: HEMATOCRIT 38.3 % (42-54); MEAN CORPUSCULAR HEMOGLOBIN 29.6 pg (27.0-33.0); MEAN CORPUSCULAR HGB CONC 32.1 g/dL (32.0-36.0); MEAN CORPUSCULAR VOLUME 92.3 fL (79-99); RED BLOOD CELL COUNT(AUTO) 4.15 MIL/uL (4.50-6.20); RED CELL DISTRIBUTION WIDTH 14.4 % (11.0-15.5); WHITE BLOOD COUNT (AUTO) 12.7 K/uL (4.8-10.8)
[2023-03-08] MEDS: HEPARIN 25,000 UNITS/250ML D5W 250 ML IV SCH ×2 (02:35→16:33)
[2023-03-08 02:40] LABS: ALBUMIN 2.8 g/dL (3.5-5.0); CREATININE 1.1 mg/dL (0.5-1.5); POTASSIUM 3.6 mmol/L (3.5-5.1); TOTAL PROTEIN, SERUM 6.8 g/dL (6.0-8.3)
[2023-03-08] MEDS ORDERED: HEPARIN 5,000 UNIT VIAL IV ONE (03:00)
[2023-03-08] MEDS: INSULIN HUMULIN R 100 UNIT/ML 3ML SQ SCH ×4 (06:38→21:00)
[2023-03-08] MEDS: FAMOTIDINE 20MG VIAL IV SCH (08:36)
[2023-03-08] MEDS: ASPIRIN 81MG CHEW TAB PO SCH (08:37)
[2023-03-08] MEDS: TICAGRELOR 90 MG TABLET PO SCH ×2 (08:37→22:56)
[2023-03-08] MEDS: SACUBITRIL/VALSARTAN 1 EACH TABLET PO SCH ×2 (08:37→22:56)
[2023-03-08] MEDS: ISOSORBIDE MONO 30MG SR TAB PO SCH (08:38)
[2023-03-08] MEDS: GABAPENTIN 300 MG CAPSULE PO SCH ×3 (08:38→22:56)
[2023-03-08] MEDS: METOPROLOL SUCCINATE 25 MG TAB.SR.24H PO SCH (08:38)
[2023-03-08] MEDS: FUROSEMIDE 20 MG TABLET PO SCH ×2 (08:38→22:56)
[2023-03-08 16:53] LABS: PROTHROMBIN TIME 10.9 SEC (9.6-11.6)
[2023-03-08 16:54] LABS: PARTIAL THROMBOPLASTIN TIME 71.2 SEC (26.3-35.5)
[2023-03-08] MEDS: KCL 20 MEQ ERTAB PO PRN ×2 (17:17→18:58)
[2023-03-08] MEDS: ATORVASTATIN 40 MG TABLET PO SCH (22:55)
[2023-03-09 04:00] VITALS: BP 108/59
[2023-03-09 04:59] LABS: HEMATOCRIT 40.1 % (42-54); MEAN CORPUSCULAR HEMOGLOBIN 29.6 pg (27.0-33.0); MEAN CORPUSCULAR HGB CONC 31.9 g/dL (32.0-36.0); MEAN CORPUSCULAR VOLUME 92.8 fL (79-99); RED BLOOD CELL COUNT(AUTO) 4.32 MIL/uL (4.50-6.20); RED CELL DISTRIBUTION WIDTH 14.3 % (11.0-15.5); WHITE BLOOD COUNT (AUTO) 12.3 K/uL (4.8-10.8)
[2023-03-09 05:10] LABS: INR 0.99 (0.85-1.15); PROTHROMBIN TIME 10.8 SEC (9.6-11.6)
[2023-03-09 05:12] LABS: PARTIAL THROMBOPLASTIN TIME 62.2 SEC (26.3-35.5)
[2023-03-09 05:16] LABS: CREATININE 1.1 mg/dL (0.5-1.5); POTASSIUM 4.3 mmol/L (3.5-5.1); TOTAL PROTEIN, SERUM 7.1 g/dL (6.0-8.3)
[2023-03-09] MEDS: INSULIN HUMULIN R 100 UNIT/ML 3ML SQ SCH ×4 (05:56→20:05)
[2023-03-09] MEDS: METOPROLOL SUCCINATE 25 MG TAB.SR.24H PO SCH ×2 (09:00→09:14)
[2023-03-09] MEDS: FUROSEMIDE 20 MG TABLET PO SCH ×3 (09:00→19:47)
[2023-03-09] MEDS: ISOSORBIDE MONO 30MG SR TAB PO SCH ×2 (09:00→09:13)
[2023-03-09] MEDS: FAMOTIDINE 20MG VIAL IV SCH (09:13)
[2023-03-09] MEDS: TICAGRELOR 90 MG TABLET PO SCH (09:13)
[2023-03-09] MEDS: SACUBITRIL/VALSARTAN 1 EACH TABLET PO SCH ×2 (09:13→19:46)
[2023-03-09] MEDS: ASPIRIN 81MG CHEW TAB PO SCH (09:13)
[2023-03-09] MEDS: GABAPENTIN 300 MG CAPSULE PO SCH ×3 (09:14→19:49)
[2023-03-09] MEDS ORDERED: NITROGLYCERIN 50MG VIAL ONE (10:11)
[2023-03-09] MEDS ORDERED: IOHEXOL 350 MG/ML 100ML INFUS..BTL IV ONE (10:11)
[2023-03-09] MEDS ORDERED: HEPARIN 10,000 UNIT/10ML (1,000 UNIT/ML) VIAL ONE (10:11)
[2023-03-09] MEDS ORDERED: LIDOCAINE HCL 400MG/20ML VIAL ONE (10:12)
[2023-03-09] MEDS ORDERED: NICARDIPINE 25MG INJ IV ONE (10:16)
[2023-03-09] MEDS ORDERED: FENTANYL CITRATE PF 50 MCG/1 ML 2ML VIAL ONE (10:49)
[2023-03-09] MEDS ORDERED: MIDAZOLAM HCL 1 MG/ML 2ML VIAL ONE (10:49)
[2023-03-09] MEDS ORDERED: IOHEXOL-350 50ML VIAL IV ONE (11:04)
[2023-03-09] MEDS ORDERED: GLUCAGON 1MG KIT 1 MG ML IM PRN (11:30)
[2023-03-09] MEDS ORDERED: DEXTROSE 50%-WATER 50 ML DISP.SYRIN IV PRN (11:30)
[2023-03-09 12:00] VITALS: BP 126/73
[2023-03-09] MEDS ORDERED: PRASUGREL HCL 10 MG TABLET PO SCH (13:00)
[2023-03-09] MEDS ORDERED: CEFTRIAXONE 1G VIAL IVPB ONE (14:00)
[2023-03-09 16:00] VITALS: BP 133/86
[2023-03-09] MEDS: ONDANSETRON 4MG INJ IV PRN (19:46)
[2023-03-09] MEDS: ATORVASTATIN 40 MG TABLET PO SCH (19:51)
[2023-03-09 20:00] VITALS: BP 136/73
[2023-03-10] VITALS (7 sets, daily range): BP systolic 98–120; BP diastolic 55–72
[2023-03-10] MEDS ORDERED: LACTULOSE 20 GM/30 ML UDCUP PO PRN (01:00)
[2023-03-10 04:27] LABS: HEMATOCRIT 41.8 % (42-54); MEAN CORPUSCULAR HEMOGLOBIN 29.5 pg (27.0-33.0); MEAN CORPUSCULAR HGB CONC 31.6 g/dL (32.0-36.0); MEAN CORPUSCULAR VOLUME 93.3 fL (79-99); RED BLOOD CELL COUNT(AUTO) 4.48 MIL/uL (4.50-6.20); RED CELL DISTRIBUTION WIDTH 14.7 % (11.0-15.5); WHITE BLOOD COUNT (AUTO) 12.9 K/uL (4.8-10.8)
[2023-03-10 04:38] LABS: CREATININE 1.3 mg/dL (0.5-1.5); MAGNESIUM 2.2 mg/dL (1.80-2.40); POTASSIUM 4.8 mmol/L (3.5-5.1)
[2023-03-10] MEDS: INSULIN HUMULIN R 100 UNIT/ML 3ML SQ SCH ×4 (05:54→20:36)
[2023-03-10] MEDS ORDERED: CEFTRIAXONE 1G VIAL IVPB ONE (08:30)
[2023-03-10] MEDS: PRASUGREL HCL 10 MG TABLET PO SCH (08:47)
[2023-03-10] MEDS: FUROSEMIDE 20 MG TABLET PO SCH ×2 (08:47→20:27)
[2023-03-10] MEDS: SACUBITRIL/VALSARTAN 1 EACH TABLET PO SCH (08:47)
[2023-03-10] MEDS: ASPIRIN 81MG CHEW TAB PO SCH (08:47)
[2023-03-10] MEDS: FAMOTIDINE 20MG VIAL IV SCH (08:48)
[2023-03-10] MEDS: METOPROLOL SUCCINATE 25 MG TAB.SR.24H PO SCH ×2 (08:56→12:37)
[2023-03-10] MEDS: ISOSORBIDE MONO 30MG SR TAB PO SCH ×2 (08:56→12:37)
[2023-03-10] MEDS: GABAPENTIN 300 MG CAPSULE PO SCH (08:59)
[2023-03-10] MEDS: ATORVASTATIN 40 MG TABLET PO SCH (20:28)
[2023-03-11 04:00] VITALS: BP 112/61
[2023-03-11 04:40] LABS: MEAN CORPUSCULAR HEMOGLOBIN 28.9 pg (27.0-33.0); MEAN CORPUSCULAR HGB CONC 31.7 g/dL (32.0-36.0); MEAN CORPUSCULAR VOLUME 91.3 fL (79-99); RED BLOOD CELL COUNT(AUTO) 4.6 MIL/uL (4.50-6.20); RED CELL DISTRIBUTION WIDTH 14.6 % (11.0-15.5); WHITE BLOOD COUNT (AUTO) 11.8 K/uL (4.8-10.8)
[2023-03-11 04:51] LABS: CREATININE 1.1 mg/dL (0.5-1.5); POTASSIUM 4.2 mmol/L (3.5-5.1)
[2023-03-11] MEDS: INSULIN HUMULIN R 100 UNIT/ML 3ML SQ SCH (07:30)
[2023-03-11 08:02] VITALS: BP 102/65
[2023-03-11] MEDS: FAMOTIDINE 20MG VIAL IV SCH (09:00)
[2023-03-11] MEDS: METOPROLOL SUCCINATE 25 MG TAB.SR.24H PO SCH (10:02)
[2023-03-11] MEDS: ISOSORBIDE MONO 30MG SR TAB PO SCH (10:03)
[2023-03-11] MEDS: ASPIRIN 81MG CHEW TAB PO SCH (10:03)
[2023-03-11] MEDS: FUROSEMIDE 20 MG TABLET PO SCH (10:03)
[2023-03-11] MEDS: PRASUGREL HCL 10 MG TABLET PO SCH (10:03)
[2023-03-11 11:20] VITALS: BP 140/75
== END 2023-03-11 12:00 | disposition home or self-care (01) | DRG 281 ==
LOC: EDH 18:07 → EDHIP 21:14 → 4BH 03-06 16:30
PROVIDERS: ADMIT Hospitalist; ATTEND Hospitalist
PROC: B2111ZZ Fluoroscopy of Multiple Coronary Arteries using Low Osmolar Contrast (ICD-10-PCS; principal; 2023-03-09)
DX: I21.4 Non-ST elevation (NSTEMI) myocardial infarction (principal); I50.22 Chronic systolic (congestive) heart failure; Z68.41 Body mass index [BMI] 40.0-44.9, adult; I25.10 Atherosclerotic heart disease of native coronary artery without angina pectoris; I11.0 Hypertensive heart disease with heart failure; E11.65 Type 2 diabetes mellitus with hyperglycemia; D64.9 Anemia, unspecified; E66.01 Morbid (severe) obesity due to excess calories; I25.5 Ischemic cardiomyopathy; E78.00 Pure hypercholesterolemia, unspecified; I25.2 Old myocardial infarction; Z79.02 Long term (current) use of antithrombotics/antiplatelets; Z79.82 Long term (current) use of aspirin; Z79.899 Other long term (current) drug therapy; Z82.49 Family history of ischemic heart disease and other diseases of the circulatory system; Z83.3 Family history of diabetes mellitus; Z87.891 Personal history of nicotine dependence; Z95.5 Presence of coronary angioplasty implant and graft
CPT/HCPCS: 36415; 71045; 80048; 80053; 80305; 81003; 82948; 83036; 83735; 83880; 84100; 84484; 85025; 85027; 85610; 85730; 93005; 93306; 93356; 93454; 99156; 99157; C1769; G0378; J0696; J1642; J1644; J1815; J2250; J2270; J2405; J3010; J3490; Q9967

== ENCOUNTER 2023-04-09 17:40 | Emergency (ER) | payer OTHER ==
[~2023-04-09] VITALS: Ht 170.2 cm; Wt 127.0 kg
[~2023-04-09 17:40] MED LIST changes: -ASPI-1443 PO; -FURO20TA4 PO; -IBUP-1493 PO; -LIDOP TD; -METO50TA9 PO; -PRED20TA3 PO; -SACU1TAB PO; -TICA90TA PO
[2023-04-09 18:16] LABS: INR 0.94 (0.85-1.15)
[2023-04-09 18:17] LABS: PARTIAL THROMBOPLASTIN TIME 26.9 SEC (26.3-35.5)
[2023-04-09 18:59] VITALS: BP 120/77
== END 2023-04-09 19:00 | disposition home or self-care (01) ==
LOC: EDH 17:40
DX: H11.30 Conjunctival hemorrhage, unspecified eye (principal); E78.00 Pure hypercholesterolemia, unspecified; H53.2 Diplopia; Z79.82 Long term (current) use of aspirin; Z79.84 Long term (current) use of oral hypoglycemic drugs; Z79.899 Other long term (current) drug therapy; Z95.5 Presence of coronary angioplasty implant and graft; Z98.890 Other specified postprocedural states
CPT/HCPCS: 36415; 82550; 83874; 84484; 85610; 85730; 93005

== ENCOUNTER 2023-05-11 10:17 | Inpatient (IN) | payer OTHER ==
[~2023-05-11] VITALS: Ht 177.8 cm; Wt 128.4 kg
[2023-05-11] MEDS ORDERED: NITROGLYCERIN 1GM OINT 1 INCH/1GM TD ONE (11:00)
[2023-05-11] MEDS ORDERED: ASPIRIN 325MG TAB PO ONE (11:00)
[2023-05-11 11:14] LABS: BASOPHILS # (AUTO) 0.02 K/uL (0.00-0.20); BASOPHILS % (AUTO) 0.2 % (0.0-5.0); EOSINOPHILS # (AUTO) 0.39 K/uL (0.00-0.70); EOSINOPHILS % (AUTO) 3.8 % (0.0-8.0); HEMATOCRIT 41.1 % (42-54); IMMATURE GRANULOCYTE ABSOLUTE 0.05 K/uL (0-1); LYMPHOCYTES # (AUTO) 2.9 K/uL (1.0-4.8); LYMPHOCYTES % (AUTO) 28.2 % (21.0-51.0); MEAN CORPUSCULAR HEMOGLOBIN 28.8 pg (27.0-33.0); MEAN CORPUSCULAR HGB CONC 32.4 g/dL (32.0-36.0); MONOCYTES # (AUTO) 0.8 K/uL (0.1-1.0); MONOCYTES % (AUTO) 7.7 % (3.0-13.0); NEUTROPHILS # (AUTO) 6.1 K/uL (1.8-7.7); NEUTROPHILS % (AUTO) 59.6 % (40.0-77.0); PLATELET COUNT (AUTO) 215 K/uL (130-400); RED BLOOD CELL COUNT(AUTO) 4.62 MIL/uL (4.50-6.20); WHITE BLOOD COUNT (AUTO) 10.3 K/uL (4.8-10.8)
[2023-05-11 11:20] LABS: CREATININE 1.1 mg/dL (0.5-1.5); POTASSIUM 3.8 mmol/L (3.5-5.1)
[2023-05-11 11:24] LABS: ALBUMIN 3.2 g/dL (3.5-5.0); BILIRUBIN,TOTAL 0.4 mg/dL (0.2-1.0); MAGNESIUM 1.9 mg/dL (1.80-2.40)
[2023-05-11] MEDS: PANTOPRAZOLE 40 MG TAB DR PO SCH (13:59)
[2023-05-11] MEDS ORDERED: MORPHINE 2 MG SYG IVP PRN (14:00)
[2023-05-11] MEDS ORDERED: ALBU2.5V2 IH (14:11)
[2023-05-11] MEDS ORDERED: SACU1TAB PO (14:11)
[2023-05-11] MEDS ORDERED: RIVA2.5T PO (14:11)
[2023-05-11] MEDS ORDERED: HEPARIN 5,000 UNIT VIAL SQ PRN (14:30)
[2023-05-11 15:08] LABS: HEMOGLOBIN A1C 7.7 % (4.0-6.0)
[2023-05-11 15:12] LABS: INR 0.98 (0.85-1.15); PROTHROMBIN TIME 11.4 SEC (9.6-11.6)
[2023-05-11 15:13] LABS: PARTIAL THROMBOPLASTIN TIME 29.9 SEC (26.3-35.5)
[2023-05-11 15:26] LABS: THYROID STIMULATING HORMONE 1.39 uIU/mL (0.36-3.74)
[2023-05-11 16:20] VITALS: O2SAT 95
[2023-05-11] MEDS: HEPARIN 25,000 UNITS/250ML D5W 250 ML IV SCH ×2 (16:46→20:15)
[2023-05-11] MEDS: FUROSEMIDE 20 MG TABLET PO SCH (16:50)
[2023-05-11] MEDS ORDERED: IPRATROPIUM/ALBUTEROL SULFATE 3 ML SOLUTION IH PRN (17:00)
[2023-05-11] MEDS ORDERED: Breztri Aerosphere Inhaler IH PRN (17:00)
[2023-05-11 18:00] VITALS: BP 134/89; PULSE 56; RESP 20
[2023-05-11 18:05] VITALS: PULSE 81; RESP 18; O2SAT 96
[2023-05-11] MEDS: PRASUGREL HCL 10 MG TABLET PO SCH (18:15)
[2023-05-11 18:20] VITALS: O2SAT 95
[2023-05-11 19:59] VITALS: BP 133/73; PULSE 64; RESP 18
[2023-05-11 20:00] VITALS: O2SAT 95
[2023-05-11] MEDS: RANOLAZINE 500 MG TAB.SR.12H PO SCH (20:39)
[2023-05-11] MEDS: ATORVASTATIN 40 MG TABLET PO SCH (20:40)
[2023-05-11] MEDS: SACUBITRIL/VALSARTAN 1 EACH TABLET PO SCH (20:40)
[2023-05-11] MEDS: INSULIN HUMULIN R 100 UNIT/ML 3ML SQ SCH (20:53)
[2023-05-12] VITALS (11 sets, daily range): BP systolic 94–132; BP diastolic 52–78; PULSE 54–69; RESP 18–20; O2SAT 93–97
[2023-05-12] MEDS: HEPARIN 25,000 UNITS/250ML D5W 250 ML IV SCH ×2 (02:30→08:15)
[2023-05-12 03:33] LABS: BASOPHILS # (AUTO) 0.02 K/uL (0.00-0.20); BASOPHILS % (AUTO) 0.2 % (0.0-5.0); EOSINOPHILS # (AUTO) 0.69 K/uL (0.00-0.70); EOSINOPHILS % (AUTO) 7.3 % (0.0-8.0); HEMATOCRIT 39.3 % (42-54); IMMATURE GRANULOCYTE ABSOLUTE 0.02 K/uL (0-1); LYMPHOCYTES # (AUTO) 3.6 K/uL (1.0-4.8); LYMPHOCYTES % (AUTO) 37.7 % (21.0-51.0); MEAN CORPUSCULAR HEMOGLOBIN 29.4 pg (27.0-33.0); MEAN CORPUSCULAR HGB CONC 32.3 g/dL (32.0-36.0); MONOCYTES # (AUTO) 0.9 K/uL (0.1-1.0); MONOCYTES % (AUTO) 9.9 % (3.0-13.0); NEUTROPHILS # (AUTO) 4.2 K/uL (1.8-7.7); NEUTROPHILS % (AUTO) 44.7 % (40.0-77.0); PLATELET COUNT (AUTO) 202 K/uL (130-400); RED BLOOD CELL COUNT(AUTO) 4.32 MIL/uL (4.50-6.20); RED CELL DISTRIBUTION WIDTH 13.9 % (11.0-15.5); WHITE BLOOD COUNT (AUTO) 9.4 K/uL (4.8-10.8)
[2023-05-12 03:59] LABS: ALBUMIN 2.8 g/dL (3.5-5.0); BILIRUBIN,TOTAL 0.5 mg/dL (0.2-1.0); POTASSIUM 3.3 mmol/L (3.5-5.1)
[2023-05-12] MEDS ORDERED: POTASSIUM CHLORIDE 20MEQ/100ML 100 ML IV PRN (05:00)
[2023-05-12] MEDS ORDERED: POTASSIUM CHLORIDE 10% ELIXIR 20 MEQ/15 ML UDCUP PO PRN (05:00)
[2023-05-12] MEDS: FUROSEMIDE 20 MG TABLET PO SCH ×2 (06:21→17:09)
[2023-05-12] MEDS: KCL 20 MEQ ERTAB PO PRN (06:21)
[2023-05-12] MEDS: INSULIN HUMULIN R 100 UNIT/ML 3ML SQ SCH ×5 (06:24→17:08)
[2023-05-12] MEDS: PRASUGREL HCL 10 MG TABLET PO SCH (08:30)
[2023-05-12] MEDS: ISOSORBIDE MONO 60MG SR TAB PO SCH (08:33)
[2023-05-12] MEDS: RANOLAZINE 500 MG TAB.SR.12H PO SCH ×2 (08:33→22:02)
[2023-05-12] MEDS: METOPROLOL SUCCINATE 25 MG TAB.SR.24H PO SCH (08:34)
[2023-05-12] MEDS: SACUBITRIL/VALSARTAN 1 EACH TABLET PO SCH ×2 (08:36→22:02)
[2023-05-12] MEDS: ASPIRIN 81 MG EC TAB PO SCH (08:55)
[2023-05-12] MEDS ORDERED: METOPROLOL SUCCINATE 25 MG TAB.SR.24H PO SCH (09:00)
[2023-05-12] MEDS ORDERED: ISOSORBIDE MONO 60MG SR TAB PO SCH (09:00)
[2023-05-12] MEDS: PANTOPRAZOLE 40 MG TAB DR PO SCH (15:33)
[2023-05-12] MEDS: LINAGLIPTIN 5 MG TABLET PO SCH (15:33)
[2023-05-12] MEDS: ENOXAPARIN SODIUM 120 MG/0.8ML SQ SCH (16:29)
[2023-05-12] MEDS: ATORVASTATIN 40 MG TABLET PO SCH (22:02)
[2023-05-13] VITALS (7 sets, daily range): BP systolic 93–120; BP diastolic 49–71; PULSE 52–67; RESP 18–24; O2SAT 96–100
[2023-05-13 04:06] LABS: HEMATOCRIT 38.8 % (42-54); MEAN CORPUSCULAR HEMOGLOBIN 29.4 pg (27.0-33.0); MEAN CORPUSCULAR HGB CONC 32.2 g/dL (32.0-36.0); MEAN CORPUSCULAR VOLUME 91.3 fL (79-99); RED BLOOD CELL COUNT(AUTO) 4.25 MIL/uL (4.50-6.20); WHITE BLOOD COUNT (AUTO) 9.5 K/uL (4.8-10.8)
[2023-05-13 04:14] LABS: CREATININE 1.1 mg/dL (0.5-1.5); POTASSIUM 3.8 mmol/L (3.5-5.1)
[2023-05-13] MEDS: ENOXAPARIN SODIUM 120 MG/0.8ML SQ SCH ×2 (05:18→16:08)
[2023-05-13] MEDS: KCL 20 MEQ ERTAB PO PRN (05:19)
[2023-05-13] MEDS: FUROSEMIDE 20 MG TABLET PO SCH ×2 (05:19→17:00)
[2023-05-13] MEDS: INSULIN HUMULIN R 100 UNIT/ML 3ML SQ SCH ×3 (06:01→15:51)
[2023-05-13] MEDS: METOPROLOL SUCCINATE 25 MG TAB.SR.24H PO SCH (08:36)
[2023-05-13] MEDS: PRASUGREL HCL 10 MG TABLET PO SCH (08:36)
[2023-05-13] MEDS: LINAGLIPTIN 5 MG TABLET PO SCH (08:36)
[2023-05-13] MEDS: ISOSORBIDE MONO 60MG SR TAB PO SCH (08:37)
[2023-05-13] MEDS: SACUBITRIL/VALSARTAN 1 EACH TABLET PO SCH (08:37)
[2023-05-13] MEDS: RANOLAZINE 500 MG TAB.SR.12H PO SCH (08:37)
[2023-05-13] MEDS: ASPIRIN 81 MG EC TAB PO SCH (08:37)
[2023-05-13] MEDS ORDERED: Isosorbide Mono 60MG Sr Tab PO (10:26)
[2023-05-13] MEDS ORDERED: METO25TA3 PO (10:26)
[2023-05-13] MEDS ORDERED: PRAS10TA6 PO (10:26)
[2023-05-13] MEDS ORDERED: RANO500T2 PO (10:26)
[2023-05-13] MEDS ORDERED: SACU1TAB PO (10:26)
[2023-05-13] MEDS ORDERED: CLOP-31 PO (11:36)
[2023-05-13] MEDS: PANTOPRAZOLE 40 MG TAB DR PO SCH (13:36)
== END 2023-05-13 18:07 | disposition home or self-care (01) | DRG 281 ==
LOC: EDH 10:17 → EDHIP 13:16 → 2DH 16:42
PROVIDERS: ADMIT Internal Medicine; ATTEND Internal Medicine
PROC: 5A09357 Assistance with Respiratory Ventilation, Less than 24 Consecutive Hours, Continuous Positive Airway Pressure (ICD-10-PCS; principal; 2023-05-13)
DX: I21.4 Non-ST elevation (NSTEMI) myocardial infarction (principal); I42.8 Other cardiomyopathies; Z68.41 Body mass index [BMI] 40.0-44.9, adult; I25.10 Atherosclerotic heart disease of native coronary artery without angina pectoris; E66.01 Morbid (severe) obesity due to excess calories; E11.9 Type 2 diabetes mellitus without complications; E78.00 Pure hypercholesterolemia, unspecified; I10 Essential (primary) hypertension; I25.2 Old myocardial infarction; Z79.01 Long term (current) use of anticoagulants; Z79.02 Long term (current) use of antithrombotics/antiplatelets; Z79.82 Long term (current) use of aspirin; Z79.899 Other long term (current) drug therapy; Z82.49 Family history of ischemic heart disease and other diseases of the circulatory system; Z83.3 Family history of diabetes mellitus; Z86.74 Personal history of sudden cardiac arrest; Z86.79 Personal history of other diseases of the circulatory system; Z95.5 Presence of coronary angioplasty implant and graft
CPT/HCPCS: 36415; 70450; 71045; 80048; 80053; 80061; 82550; 82948; 83036; 83735; 83874; 83880; 84132; 84443; 84484; 85025; 85027; 85610; 85730; 93005; 93306; 93356; G0378; J1644; J1650; J1815

== ENCOUNTER 2023-06-03 15:26 | Inpatient (IN) | payer OTHER ==
[~2023-06-03] VITALS: Ht 177.8 cm; Wt 81.8 kg
[~2023-06-03 15:26] MED LIST changes: +ALBU2.5V2 IH; +CLOP-31 PO; -ISOS30TA92 PO; +Isosorbide Mono 60MG Sr Tab PO; -METF-444 PO; +PRAS10TA6 PO; +RANO500T2 PO; +RIVA2.5T PO; +SACU1TAB PO
[2023-06-03 16:34] LABS: BASOPHILS # (AUTO) 0.03 K/uL (0.00-0.20); BASOPHILS % (AUTO) 0.2 % (0.0-5.0); EOSINOPHILS # (AUTO) 0.35 K/uL (0.00-0.70); EOSINOPHILS % (AUTO) 2.8 % (0.0-8.0); HEMATOCRIT 43.4 % (42-54); IMMATURE GRANULOCYTE ABSOLUTE 0.03 K/uL (0-1); LYMPHOCYTES # (AUTO) 4.6 K/uL (1.0-4.8); LYMPHOCYTES % (AUTO) 37.5 % (21.0-51.0); MEAN CORPUSCULAR HEMOGLOBIN 29.3 pg (27.0-33.0); MEAN CORPUSCULAR HGB CONC 33.2 g/dL (32.0-36.0); MEAN CORPUSCULAR VOLUME 88.4 fL (79-99); MONOCYTES # (AUTO) 1.4 K/uL (0.1-1.0); NEUTROPHILS # (AUTO) 5.9 K/uL (1.8-7.7); NEUTROPHILS % (AUTO) 48.3 % (40.0-77.0); PLATELET COUNT (AUTO) 262 K/uL (130-400); RED BLOOD CELL COUNT(AUTO) 4.91 MIL/uL (4.50-6.20); RED CELL DISTRIBUTION WIDTH 14.3 % (11.0-15.5); WHITE BLOOD COUNT (AUTO) 12.3 K/uL (4.8-10.8)
[2023-06-03 16:49] LABS: ALBUMIN 3.8 g/dL (3.5-5.0); BILIRUBIN,TOTAL 0.9 mg/dL (0.2-1.0); TOTAL PROTEIN, SERUM 8.8 g/dL (6.0-8.3)
[2023-06-03 17:27] LABS: APPEARANCE,URINE CLEAR (CLEAR); BILIRUBIN,URINE NEGATIVE (NEGATIVE); COLOR,URINE YELLOW (YELLOW); GLUCOSE, URINE (UA) NEGATIVE (NEGATIVE); KETONES,URINE NEGATIVE (NEGATIVE); LEUKOCYTE ESTERASE ,URINE NEGATIVE Leu/uL (NEGATIVE); NITRATE,URINE NEGATIVE (NEGATIVE); OCCULT BLOOD,URINE NEGATIVE (NEGATIVE); PROTEIN,URINE 30 mg/dL (NEGATIVE); UROBILINOGEN,URINE 0.2 mg/dL (0.2-1.0)
[2023-06-03 17:28] LABS: ADD UA MICROSCOPIC YES
[2023-06-03 17:31] LABS: BACTERIA,URINE RARE /HPF (None Seen); HYALINE CASTS, URINE 26-50 /LPF (0-1 /LPF); MUCUS,URINE RARE LPF (None Seen); OTHER CASTS, URINE 1 /LPF (None Seen); SQUAMOUS EPITHELIAL CELL,UR RARE /HPF (0-2)
[2023-06-03] MEDS ORDERED: ASPIRIN 325MG TAB PO ONE (18:30)
[2023-06-03] MEDS ORDERED: POTASSIUM BICARB/CIT AC 25 MEQ TABLET.EFF PO ONE (18:30)
[2023-06-03] MEDS ORDERED: FAMOTIDINE 20MG VIAL IV ONE (20:00)
[2023-06-03] MEDS ORDERED: 0.9%NACL 1000ML 1,000 ML IV ONE (20:00)
[2023-06-03] MEDS ORDERED: ONDANSETRON 4MG INJ IVP ONE (20:00)
[2023-06-03 21:47] LABS: CREATININE 3.4 mg/dL (0.5-1.5); POTASSIUM 3.9 mmol/L (3.5-5.1)
[2023-06-03 21:51] LABS: ALBUMIN 3.4 g/dL (3.5-5.0); BILIRUBIN,TOTAL 0.8 mg/dL (0.2-1.0)
[2023-06-03] MEDS ORDERED: SACU1TAB PO (22:56)
[2023-06-03] MEDS ORDERED: ACETAMINOPHEN 325 MG TAB PO PRN ×2 (23:30)
[2023-06-03] MEDS ORDERED: POTASSIUM CHLORIDE 10MEQ/100ML 100 ML IV PRN (23:30)
[2023-06-03] MEDS ORDERED: MAGNESIUM 2GM PREMIX 50ML 50 ML IV PRN (23:30)
[2023-06-03] MEDS ORDERED: NITROGLYCERIN 0.4 MG SL TAB SL PRN (23:30)
[2023-06-03] MEDS ORDERED: ONDANSETRON 4MG INJ IV PRN (23:30)
[2023-06-03] MEDS: LACTATED RINGERS 1000ML 1,000 ML IV SCH (23:59)
[2023-06-04] VITALS (11 sets, daily range): BP systolic 80–114; BP diastolic 37–69; PULSE 52–79; RESP 16–19; O2SAT 97–99
[2023-06-04] MEDS ORDERED: METF-444 PO (02:26)
[2023-06-04 08:48] LABS: HEMATOCRIT 40.9 % (42-54); MEAN CORPUSCULAR HEMOGLOBIN 29.3 pg (27.0-33.0); MEAN CORPUSCULAR HGB CONC 31.8 g/dL (32.0-36.0); MEAN CORPUSCULAR VOLUME 92.1 fL (79-99); RED BLOOD CELL COUNT(AUTO) 4.44 MIL/uL (4.50-6.20); RED CELL DISTRIBUTION WIDTH 14.3 % (11.0-15.5)
[2023-06-04 09:01] LABS: ALBUMIN 3.2 g/dL (3.5-5.0); BILIRUBIN,TOTAL 0.6 mg/dL (0.2-1.0); CREATININE 3.1 mg/dL (0.5-1.5); MAGNESIUM 2.4 mg/dL (1.80-2.40); TOTAL PROTEIN, SERUM 7.7 g/dL (6.0-8.3)
[2023-06-04 09:20] LABS: SODIUM,URINE RANDOM 41 mmol/l (40-220)
[2023-06-04 09:24] LABS: CREATININE,URINE RANDOM 544 mg/dL (30-135)
[2023-06-04] MEDS ORDERED: FUROSEMIDE 20 MG TABLET PO SCH (09:30)
[2023-06-04] MEDS ORDERED: Breztri Aerosphere Inhaler IH PRN (10:00)
[2023-06-04] MEDS: LACTATED RINGERS 1000ML 1,000 ML IV SCH (14:00)
[2023-06-04] MEDS: ATORVASTATIN 40 MG TABLET PO SCH (20:51)
[2023-06-04] MEDS: RANOLAZINE 500 MG TAB.SR.12H PO SCH (20:51)
[2023-06-04] MEDS ORDERED: SACUBITRIL/VALSARTAN 1 EACH TABLET PO SCH (21:00)
[2023-06-04] MEDS: ALBUTEROL 0.083% 2.5 MG/3 ML INH IH SCH (23:20)
[2023-06-05] VITALS (9 sets, daily range): BP systolic 109–138; BP diastolic 58–73; PULSE 18–72; RESP 18–57; O2SAT 95–98
[2023-06-05] MEDS: LACTATED RINGERS 1000ML 1,000 ML IV SCH ×2 (01:07→20:33)
[2023-06-05 03:42] LABS: BASOPHILS # (AUTO) 0.02 K/uL (0.00-0.20); BASOPHILS % (AUTO) 0.2 % (0.0-5.0); EOSINOPHILS # (AUTO) 0.39 K/uL (0.00-0.70); EOSINOPHILS % (AUTO) 3.9 % (0.0-8.0); HEMATOCRIT 40.4 % (42-54); IMMATURE GRANULOCYTE ABSOLUTE 0.01 K/uL (0-1); LYMPHOCYTES # (AUTO) 4.4 K/uL (1.0-4.8); LYMPHOCYTES % (AUTO) 43.9 % (21.0-51.0); MEAN CORPUSCULAR HEMOGLOBIN 29.5 pg (27.0-33.0); MEAN CORPUSCULAR HGB CONC 32.2 g/dL (32.0-36.0); MEAN CORPUSCULAR VOLUME 91.6 fL (79-99); MONOCYTES % (AUTO) 10.2 % (3.0-13.0); NEUTROPHILS # (AUTO) 4.1 K/uL (1.8-7.7); NEUTROPHILS % (AUTO) 41.7 % (40.0-77.0); PLATELET COUNT (AUTO) 195 K/uL (130-400); RED BLOOD CELL COUNT(AUTO) 4.41 MIL/uL (4.50-6.20); WHITE BLOOD COUNT (AUTO) 9.9 K/uL (4.8-10.8)
[2023-06-05 03:58] LABS: ALBUMIN 2.9 g/dL (3.5-5.0); BILIRUBIN,TOTAL 0.7 mg/dL (0.2-1.0); CREATININE 1.7 mg/dL (0.5-1.5); MAGNESIUM 2.2 mg/dL (1.80-2.40); POTASSIUM 3.5 mmol/L (3.5-5.1); TOTAL PROTEIN, SERUM 7.1 g/dL (6.0-8.3)
[2023-06-05 04:06] LABS: B-TYPE NATRIURETIC PEPTIDE 90 pg/mL (0-100)
[2023-06-05] MEDS: ISOSORBIDE MONO 60MG SR TAB PO SCH (08:27)
[2023-06-05] MEDS: RANOLAZINE 500 MG TAB.SR.12H PO SCH ×2 (08:27→20:32)
[2023-06-05] MEDS: ASPIRIN 81 MG EC TAB PO SCH (08:28)
[2023-06-05] MEDS: CLOPIDOGREL 75MG TAB PO SCH (08:28)
[2023-06-05] MEDS ORDERED: PRASUGREL HCL 10 MG TABLET PO SCH (09:00)
[2023-06-05] MEDS ORDERED: ISOSORBIDE MONO PO SCH (09:00)
[2023-06-05] MEDS ORDERED: METOPROLOL SUCCINATE 25 MG TAB.SR.24H PO SCH (09:00)
[2023-06-05] MEDS: ATORVASTATIN 40 MG TABLET PO SCH (20:32)
[2023-06-05] MEDS: ALBUTEROL 0.083% 2.5 MG/3 ML INH IH SCH (22:26)
[2023-06-06 03:54] VITALS: BP 122/68; PULSE 64; RESP 18
[2023-06-06 04:40] LABS: CREATININE 1.3 mg/dL (0.5-1.5); POTASSIUM 3.5 mmol/L (3.5-5.1)
[2023-06-06] MEDS: LACTATED RINGERS 1000ML 1,000 ML IV SCH (05:24)
[2023-06-06 07:30] VITALS: O2SAT 96
[2023-06-06 08:00] VITALS: BP 133/65; PULSE 64; RESP 18
[2023-06-06] MEDS: ISOSORBIDE MONO 60MG SR TAB PO SCH (09:38)
[2023-06-06] MEDS: ASPIRIN 81 MG EC TAB PO SCH (09:38)
[2023-06-06] MEDS: RANOLAZINE 500 MG TAB.SR.12H PO SCH (09:39)
[2023-06-06] MEDS: CLOPIDOGREL 75MG TAB PO SCH (09:39)
== END 2023-06-06 12:00 | disposition home or self-care (01) | DRG 682 ==
LOC: EDH 15:26 → EDHIP 23:07 → 4BH 06-04 01:52
PROVIDERS: ADMIT Hospitalist; ATTEND Hospitalist
DX: N17.9 Acute kidney failure, unspecified (principal); I21.A1 Myocardial infarction type 2; I42.9 Cardiomyopathy, unspecified; K52.9 Noninfective gastroenteritis and colitis, unspecified; E87.6 Hypokalemia; E66.01 Morbid (severe) obesity due to excess calories; E11.9 Type 2 diabetes mellitus without complications; E78.00 Pure hypercholesterolemia, unspecified; E86.0 Dehydration; I11.0 Hypertensive heart disease with heart failure; I25.10 Atherosclerotic heart disease of native coronary artery without angina pectoris; I50.9 Heart failure, unspecified; R62.7 Adult failure to thrive; Z68.25 Body mass index [BMI] 25.0-25.9, adult; Z82.49 Family history of ischemic heart disease and other diseases of the circulatory system; I25.2 Old myocardial infarction; Z83.3 Family history of diabetes mellitus; Z95.5 Presence of coronary angioplasty implant and graft
CPT/HCPCS: 36415; 71045; 74176; 76770; 80048; 80053; 81001; 82570; 82948; 83630; 83735; 83880; 84300; 84484; 85025; 85027; 87046; 87338; 93005; 94640; 94664; 99291; G0378; J2405; J3490

== ENCOUNTER 2023-07-23 15:47 | Emergency (ER) | payer OTHER ==
[~2023-07-23] VITALS: Ht 177.8 cm; Wt 127.0 kg
[~2023-07-23 15:47] MED LIST changes: -GABA300C PO; +METF-444 PO; -RIVA2.5T PO
[2023-07-23 16:14] LABS: BASOPHILS # (AUTO) 0.03 K/uL (0.00-0.20); BASOPHILS % (AUTO) 0.2 % (0.0-5.0); EOSINOPHILS # (AUTO) 0.63 K/uL (0.00-0.70); EOSINOPHILS % (AUTO) 4.8 % (0.0-8.0); HEMATOCRIT 42.3 % (42-54); IMMATURE GRANULOCYTE ABSOLUTE 0.06 K/uL (0-1); LYMPHOCYTES # (AUTO) 2.9 K/uL (1.0-4.8); LYMPHOCYTES % (AUTO) 22.4 % (21.0-51.0); MEAN CORPUSCULAR HEMOGLOBIN 29.8 pg (27.0-33.0); MEAN CORPUSCULAR HGB CONC 33.3 g/dL (32.0-36.0); MEAN CORPUSCULAR VOLUME 89.4 fL (79-99); MONOCYTES % (AUTO) 7.2 % (3.0-13.0); NEUTROPHILS # (AUTO) 8.5 K/uL (1.8-7.7); NEUTROPHILS % (AUTO) 64.9 % (40.0-77.0); PLATELET COUNT (AUTO) 260 K/uL (130-400); RED BLOOD CELL COUNT(AUTO) 4.73 MIL/uL (4.50-6.20); RED CELL DISTRIBUTION WIDTH 14.3 % (11.0-15.5); WHITE BLOOD COUNT (AUTO) 13.1 K/uL (4.8-10.8)
[2023-07-23 16:21] LABS: POTASSIUM 3.5 mmol/L (3.5-5.1)
[2023-07-23 16:31] LABS: ALBUMIN 3.4 g/dL (3.5-5.0); BILIRUBIN,TOTAL 0.6 mg/dL (0.2-1.0); TOTAL PROTEIN, SERUM 8.2 g/dL (6.0-8.3)
[2023-07-23 17:00] LABS: ADD UA MICROSCOPIC YES; APPEARANCE,URINE CLEAR (CLEAR); BILIRUBIN,URINE NEGATIVE (NEGATIVE); COLOR,URINE YELLOW (YELLOW); GLUCOSE, URINE (UA) NEGATIVE (NEGATIVE); KETONES,URINE NEGATIVE (NEGATIVE); LEUKOCYTE ESTERASE ,URINE NEGATIVE Leu/uL (NEGATIVE); NITRATE,URINE NEGATIVE (NEGATIVE); OCCULT BLOOD,URINE NEGATIVE (NEGATIVE); PROTEIN,URINE 50 mg/dL (NEGATIVE); UROBILINOGEN,URINE 0.2 mg/dL (0.2-1.0)
[2023-07-23 17:03] LABS: BACTERIA,URINE FEW /HPF (None Seen); MUCUS,URINE MOD LPF (None Seen); RBC,URINE 0-1 /HPF (0-1); SQUAMOUS EPITHELIAL CELL,UR RARE /HPF (0-2); WBC,URINE 0-1 /HPF (0-1)
[2023-07-23 18:57] VITALS: BP 137/71; PULSE 85; RESP 18; O2SAT 98
== END 2023-07-23 19:48 | disposition home or self-care (01) ==
LOC: EDH 15:47
DX: R07.89 Other chest pain (principal); I11.0 Hypertensive heart disease with heart failure; I50.9 Heart failure, unspecified; E11.9 Type 2 diabetes mellitus without complications; E66.09 Other obesity due to excess calories; Z68.41 Body mass index [BMI] 40.0-44.9, adult; Z79.82 Long term (current) use of aspirin; Z79.84 Long term (current) use of oral hypoglycemic drugs; Z79.899 Other long term (current) drug therapy; Z95.5 Presence of coronary angioplasty implant and graft; Z98.890 Other specified postprocedural states
CPT/HCPCS: 36415; 71045; 80053; 81001; 84484; 85025; 93005

== ENCOUNTER → 2023-11-03 | Outpatient (CLI) | payer OTHER ==
[2023-11-03 12:28] LABS: POTASSIUM 3.9 mmol/L (3.5-5.1)
== END | disposition home or self-care (01) ==
LOC: LAB 09:22
PROVIDERS: ATTEND Internal Medicine Cardiovascular Disease
DX: R07.9 Chest pain, unspecified (principal); I10 Essential (primary) hypertension
CPT/HCPCS: 36415; 80048

== ENCOUNTER 2024-02-04 16:29 | Observation (INO) | payer OTHER ==
[~2024-02-04] VITALS: Ht 170.2 cm; Wt 134.7 kg
[2024-02-04 17:06] LABS: HEMATOCRIT 42.4 % (42-54); MEAN CORPUSCULAR HEMOGLOBIN 29.4 pg (27.0-33.0); MEAN CORPUSCULAR HGB CONC 33.3 g/dL (32.0-36.0); MEAN CORPUSCULAR VOLUME 88.5 fL (79-99); PLATELET COUNT (AUTO) 211 K/uL (130-400); RED BLOOD CELL COUNT(AUTO) 4.79 MIL/uL (4.50-6.20); RED CELL DISTRIBUTION WIDTH 13.5 % (11.0-15.5)
[2024-02-04] MEDS: ATORVASTATIN 40 MG TABLET PO ONE (17:10)
[2024-02-04] MEDS: ASPIRIN 325MG TAB PO ONE (17:11)
[2024-02-04 17:13] LABS: INR 0.95 (0.85-1.15); PROTHROMBIN TIME 11.3 SEC (9.6-11.6)
[2024-02-04 17:14] LABS: PARTIAL THROMBOPLASTIN TIME 26.8 SEC (26.3-35.5)
[2024-02-04 17:27] LABS: ALBUMIN 2.9 g/dL (3.5-5.0); BILIRUBIN,TOTAL 0.7 mg/dL (0.2-1.0); CREATININE 1.3 mg/dL (0.5-1.3); POTASSIUM 3.8 mmol/L (3.5-5.1); TOTAL PROTEIN, SERUM 7.1 g/dL (6.0-8.3)
[2024-02-04 17:35] LABS: B-TYPE NATRIURETIC PEPTIDE 29 pg/mL (0-100)
[2024-02-04 17:45] LABS: EOSINOPHILS % (MANUAL) 3 % (1-6); LYMPHOCYTES % (MANUAL) 14 % (22-44); MAN.DIFF COMMENT-IMPRESSION MANUAL DIFFERENTIAL; MONOCYTES % (MANUAL) 14 % (2-9); SEGMENTED NEUTROPHILS % 69 % (40-70); TOTAL CELLS COUNTED 100
[2024-02-04 17:47] LABS: PLATELET MORPHOLOGY COMMENT ADEQUATE; WBC MORPHOLOGY NORMAL
[2024-02-04] MEDS: INSULIN HUMULIN R 100 UNIT/ML 3ML IV ONE (17:49)
[2024-02-04] MEDS ORDERED: ISOS60TA77 PO (19:53)
[2024-02-04] MEDS ORDERED: DILT120C78 PO (19:53)
[2024-02-04] MEDS ORDERED: ONDANSETRON 4MG INJ IV PRN (20:00)
[2024-02-04] MEDS ORDERED: POTASSIUM CHLORIDE 20MEQ/100ML 100 ML IV PRN (20:00)
[2024-02-04] MEDS ORDERED: NITROGLYCERIN 0.4 MG SL TAB SL PRN (20:00)
[2024-02-04] MEDS ORDERED: DEXTROSE 50%-WATER 50 ML DISP.SYRIN IV PRN (20:00)
[2024-02-04] MEDS ORDERED: GLUCAGON 1MG KIT 1 MG ML IM PRN (20:00)
[2024-02-04] MEDS ORDERED: POTASSIUM CHLORIDE 10% ELIXIR 20 MEQ/15 ML UDCUP PO PRN (20:00)
[2024-02-04] MEDS: FAMOTIDINE 20MG TAB PO SCH (20:50)
[2024-02-04] MEDS: KCL 20 MEQ ERTAB PO PRN (20:50)
[2024-02-04] MEDS: INSULIN HUMULIN R 100 UNIT/ML 3ML SQ SCH (20:51)
[2024-02-04 23:15] VITALS: BP 135/72; PULSE 57; RESP 20; O2SAT 96
[2024-02-05] VITALS (7 sets, daily range): BP systolic 119–134; BP diastolic 62–80; PULSE 52–89; RESP 18–22; O2SAT 96–99
[2024-02-05 02:15] LABS: BASOPHILS # (AUTO) 0.02 K/uL (0.00-0.20); BASOPHILS % (AUTO) 0.2 % (0.0-5.0); EOSINOPHILS # (AUTO) 0.95 K/uL (0.00-0.70); EOSINOPHILS % (AUTO) 8.4 % (0.0-8.0); HEMATOCRIT 41.4 % (42-54); IMMATURE GRANULOCYTE ABSOLUTE 0.04 K/uL (0-1); LYMPHOCYTES # (AUTO) 4.6 K/uL (1.0-4.8); LYMPHOCYTES % (AUTO) 40.1 % (21.0-51.0); MEAN CORPUSCULAR HEMOGLOBIN 28.8 pg (27.0-33.0); MEAN CORPUSCULAR HGB CONC 33.1 g/dL (32.0-36.0); MONOCYTES % (AUTO) 8.7 % (3.0-13.0); NEUTROPHILS # (AUTO) 4.8 K/uL (1.8-7.7); NEUTROPHILS % (AUTO) 42.2 % (40.0-77.0); PLATELET COUNT (AUTO) 205 K/uL (130-400); RED BLOOD CELL COUNT(AUTO) 4.76 MIL/uL (4.50-6.20); RED CELL DISTRIBUTION WIDTH 13.7 % (11.0-15.5); WHITE BLOOD COUNT (AUTO) 11.4 K/uL (4.8-10.8)
[2024-02-05 02:43] LABS: ALBUMIN 2.9 g/dL (3.5-5.0); BILIRUBIN,TOTAL 0.4 mg/dL (0.2-1.0); MAGNESIUM 1.9 mg/dL (1.80-2.40); POTASSIUM 3.6 mmol/L (3.5-5.1); THYROID STIMULATING HORMONE 2.4 uIU/mL (0.36-3.74)
[2024-02-05] MEDS: MAGNESIUM 2GM PREMIX 50ML 50 ML IV PRN (03:24)
[2024-02-05] MEDS: CLOPIDOGREL 75MG TAB PO SCH (13:40)
[2024-02-05] MEDS: ASPIRIN 81 MG EC TAB PO SCH (13:41)
[2024-02-05] MEDS: ENOXAPARIN SODIUM 40 MG/0.4 ML SYRINGE SQ SCH (13:43)
[2024-02-05] MEDS: ATORVASTATIN 40 MG TABLET PO SCH (20:08)
[2024-02-05] MEDS: SACUBITRIL/VALSARTAN 1 EACH TABLET PO SCH (20:08)
[2024-02-06] VITALS (7 sets, daily range): BP systolic 118–127; BP diastolic 60–74; PULSE 61–88; RESP 18–20; O2SAT 97–98
[2024-02-06] MEDS: ISOSORBIDE MONO 60MG SR TAB PO SCH (09:33)
[2024-02-06] MEDS: PRASUGREL HCL 10 MG TABLET PO SCH (09:33)
[2024-02-06 09:44] LABS: AMPHET/METH SCREEN,URINE NEGATIVE (NEGATIVE); BARBITURATE SCREEN, URINE NEGATIVE (NEGATIVE); BENZODIAZEPINES SCREEN,URINE NEGATIVE (NEGATIVE); CANNABINOID SCREEN,URINE NEGATIVE (NEGATIVE); COCAINE SCREEN,URINE NEGATIVE (NEGATIVE); OPIATE SCREEN,URINE NEGATIVE (NEGATIVE); PHENCYCLIDINE SCREEN,URINE NEGATIVE (NEGATIVE)
== END 2024-02-06 20:20 | disposition home or self-care (01) ==
LOC: EDH 16:29 → EDHIP 19:39 → 3CH 22:45
PROVIDERS: ADMIT Internal Medicine; ATTEND Internal Medicine
DX: E11.65 Type 2 diabetes mellitus with hyperglycemia (principal); E66.01 Morbid (severe) obesity due to excess calories; E78.5 Hyperlipidemia, unspecified; I11.0 Hypertensive heart disease with heart failure; I50.32 Chronic diastolic (congestive) heart failure; I25.10 Atherosclerotic heart disease of native coronary artery without angina pectoris; G47.33 Obstructive sleep apnea (adult) (pediatric); I25.2 Old myocardial infarction; I25.5 Ischemic cardiomyopathy; Z91.119 Patient's noncompliance with dietary regimen due to unspecified reason; Z79.4 Long term (current) use of insulin; Z79.82 Long term (current) use of aspirin; Z95.5 Presence of coronary angioplasty implant and graft; Z87.891 Personal history of nicotine dependence; Z79.899 Other long term (current) drug therapy; Z68.42 Body mass index [BMI] 45.0-49.9, adult
CPT/HCPCS: 96372 ×5; 96365; 96366; 96375; 99285; 82550; 84484 ×5; 80053 ×2; 83880; 85025 ×2; 85610; 85730; 82948 ×8; 36415 ×2; 71045; 93005 ×2; 83036; 84443; 83735; 80061; 85378; 80305; 93306; G0378 ×47; J1815 ×8; J3475; J1650 ×2

== ENCOUNTER → 2024-05-09 | Outpatient (CLI) | payer OTHER ==
[~2024-05-09] MED LIST changes: -ALBU2.5V2 IH; -BUDE10.7 IH; -CLOP-31 PO; +DILT120C78 PO; +ISOS60TA77 PO; -Isosorbide Mono 60MG Sr Tab PO; -METF-444 PO; -METO25TA3 PO; -NITR0.3T11 SL; -RANO500T2 PO
== END | disposition home or self-care (01) ==
LOC: SHCH 12:04
PROVIDERS: ATTEND Internal Medicine Cardiovascular Disease
DX: I25.5 Ischemic cardiomyopathy (principal)
CPT/HCPCS: 93306